=== PATIENT | male | born 1945 | race Caucasian/White ===

== ENCOUNTER 2017-01-24 10:59 | Emergency (ER) | payer MEDICARE, BC ==
--- NOTE | 2017-01-24 11:47 | EDM.PDOC ---
ED HPI GENERAL MEDICAL PROBLEM - General Chief Complaint: Lower Extremity Injury/Pain Stated Complaint: FOOT PAIN Time Seen by Provider: 01/24/17 11:15 Source of Information: Reports: Patient - History of Present Illness INITIAL COMMENTS - FREE TEXT/NARRATIVE: 71 y.o.w.m with IDDM came to the ed with left food discomfort. Ot was seen a few weeks ago by his podietrist when a " blister" at his r foot was removed. Onset: Unknown/Unsure Onset Date: 01/15/17 Duration: Day(s):, Getting Worse, Intermittent Location: Reports: Lower Extremity, Left Quality: Reports: Ache Severity: Mild Improves with: Reports: Rest Worsens with: Reports: Movement Context: Reports: Other (IDDM) Associated Symptoms: Reports: No Other Symptoms Bilateral Feet Pain Score (Numeric/FACES): 6 Generalized Pain Score (Numeric/FACES): 5 - Related Data Allergies Allergy/AdvReac Type Severity Reaction Status Date / Time No Known Allergies Allergy Verified 01/24/17 11:13 Home Meds: Home Meds Albuterol/Ipratropium [Combivent] 2 puff INH QID 05/11/13 [History] Aspirin 325 mg PO DAILY 05/11/13 [History] Furosemide [Lasix] 40 mg PO DAILY 05/11/13 [History] Metoprolol Succinate 25 mg PO DAILY 05/11/13 [History] metFORMIN [Glucophage] 500 mg PO BID 05/11/13 [History] LORazepam [Ativan] 1 - 2 tab PO TID PRN 05/13/13 [History] Nitroglycerin [Nitrostat] 0.4 mg SL ASDIRECTED PRN 05/13/13 [History] oxyCODONE HCl/Acetaminophen [Oxycodone-Acetaminophen 10-650] 1 tab PO Q6HR PRN 05/13/13 [History] Amoxicillin/Potassium Clav [Augmentin 875-125 Tablet] 1 each PO BID #20 tablet 01/24/17 [Rx] FLUoxetine [PROzac] 20 mg PO DAILY 01/24/17 [History] Insulin NPH Hum/Reg Insulin Hm [Novolin 70-30 100 Unit/ml Vial] 100 unit SQ TID 01/24/17 [History] atorvaSTATin [Lipitor] 40 mg PO BEDTIME 01/24/17 [History] Past Medical History - Past Health History Medical/Surgical History: Denies Medical/Surgical History Cardiovascular History: Reports: Bypass, High Cholesterol, Hypertension, SOB on Exertion, Stents Respiratory History: Reports: COPD, Pneumonia, Recurrent, Pulmonary Fibrosis, SOB Genitourinary History: Reports: BPH Neurological History: Reports: Neuropathy, Diabetic, Neuropathy, Peripheral, Other (See Below) Other Neuro History: restless leg Psychiatric History: Reports: Anxiety Endocrine/Metabolic History: Reports: Diabetes, Type II Dermatologic History: Reports: Psoriasis - Past Surgical History Cardiovascular Surgical History: Reports: Coronary Artery Bypass GI Surgical History: Reports: Appendectomy, Cholecystectomy Social & Family History - Tobacco Use Smoking Status *Q: Former Smoker Years of Tobacco use: 40 Used Tobacco, but Quit: Yes Month Tobacco Last Used: quit in 1995 Second Hand Smoke Exposure: No - Caffeine Use Caffeine Use: Reports: Coffee - Recreational Drug Use Recreational Drug Use: No - Living Situation & Occupation Living situation: Reports: Other Review of Systems - Review of Systems Review Of Systems: See Below Constitutional: Reports: No Symptoms Eyes: Reports: No Symptoms Ears: Reports: No Symptoms Nose: Reports: No Symptoms Mouth/Throat: Reports: No Symptoms Respiratory: Reports: No Symptoms Cardiovascular: Reports: No Symptoms GI/Abdominal: Reports: No Symptoms Genitourinary: Reports: No Symptoms Musculoskeletal: Reports: Muscle Pain Skin: Reports: Wound (both feet, plantar aspect) Neurological: Reports: Difficulty Walking (PVD) Psychiatric: Reports: No Symptoms ED EXAM, GENERAL - Physical Exam Exam: See Below Exam Limited By: No Limitations General Appearance: Alert, WD/WN, Mild Distress Eye Exam: Bilateral Eye: Normal Inspection Ears: Normal External Exam Ear Exam: Bilateral Ear: Auricle Normal Nose: Normal Inspection, Normal Mucosa Throat/Mouth: Normal Inspection, Normal Lips Head: Atraumatic, Normocephalic Neck: Normal Inspection, Supple Respiratory/Chest: No Respiratory Distress, Lungs Clear Cardiovascular: Normal Peripheral Pulses, Regular Rate, Rhythm, No Edema Peripheral Pulses: 1+: Popliteal (L), Popliteal (R) GI/Abdominal: Normal Bowel Sounds, Soft (Male) Exam: Deferred Rectal (Males) Exam: Deferred Back Exam: Normal Inspection Extremities: Normal Range of Motion, Slow Capillary Refill, Pallor, Other (dry gangrene left latral foot plantar aspect 1"x1" with celluilits streak torward the heal) Neurological: Alert, Oriented, CN II-XII Intact, Other (PVD due to IDDM) Psychiatric: Normal Affect, Normal Mood Skin Exam: Warm, Dry, Rash (cellulitis left foot plantar aspect with dry gangrene left lat foot 1" time 1 ") Lymphatic: No Adenopathy Course - Vital Signs Last Recorded V/S: Last Vital Signs Temp 37.2 C 01/24/17 11:15 Pulse 73 01/24/17 12:55 Resp 18 01/24/17 11:15 BP 140/73 01/24/17 12:55 Pulse Ox 95 01/24/17 11:15 - Orders/Labs/Meds Orders: Active Orders 24 hr Category Date Time Status Foot Comp Min 3V Lt [CR] Stat Exams 01/24/17 11:29 Taken CULTURE BLOOD [BC] Urgent Lab 01/24/17 11:31 Received CULTURE BLOOD [BC] Urgent Lab 01/24/17 11:40 Received Blood Culture x2 Reflex Set [OM.PC] Urgent Oth 01/24/17 11:31 Ordered Labs: Laboratory Tests 01/24/17 01/24/17 01/24/17 Range/Units 11:35 11:35 11:35 WBC 7.5 (4.5-12.0) X10-3/uL RBC 3.88 L (4.30-5.75) x10(6)uL Hgb 11.1 L (11.5-15.5) g/dL Hct 32.8 (30.0-51.3) % MCV 84.5 (80-96) fL MCH 28.6 (27.7-33.6) pg MCHC 33.8 (32.2-35.4) g/dL RDW 13.3 (11.5-15.5) % Plt Count 207 (125-369) X10(3)uL MPV 8.7 (7.4-10.4) fL Neut % (Auto) 76.0 (46-82) % Lymph % (Auto) 12.7 L (13-37) % [place] % (Auto) 9.7 (4-12) % Eos % (Auto) 1 (1.0-5.0) % Baso % (Auto) 0 (0-2) % Neut # (Auto) 5.8 (1.6-8.3) # Lymph # (Auto) 0.9 (0.6-5.0) # [place] # (Auto) 0.7 (0.0-1.3) # Eos # (Auto) 0.1 (0.0-0.8) # Baso # (Auto) 0.0 (0.0-0.2) # Sodium 135 (135-145) mmol/L Potassium 5.3 (3.5-5.3) mmol/L Chloride 98 L (100-110) mmol/L Carbon Dioxide 29 (23-29) mmol/L BUN 18 (8-23) mg/dL Creatinine 0.9 (0.6-1.3) mg/dL Est Cr Clr Drug Dosing 78.86 mL/min Estimated GFR (MDRD) > 60 (>60) BUN/Creatinine Ratio 20.0 (9-20) Glucose 163 H (80-116) mg/dL Hemoglobin A1c 7.5 H (4.0-6.0) % Calcium 9.1 (8.6-10.2) mg/dL Meds: Medications Discontinued Medications Generic Name Dose Route Start Last Admin Trade Name Freq PRN Reason Stop Dose Admin Ceftriaxone Sodium 1,000 mg 01/24/17 12:37 01/24/17 12:44 Rocephin IM 01/24/17 12:38 1,000 mg ONETIME ONE Administration Departure - Departure Time of Disposition: 12:42 Disposition: Home, Self-Care 01 Condition: Good Clinical Impression: Dry gangrene, Cellulitis of foot, left Diabetes mellitus Qualifiers: Diabetes mellitus type: type 2 Diabetes mellitus complication status: with circulatory complication - Discharge Information Prescriptions: Amoxicillin/Potassium Clav [Augmentin 875-125 Tablet] 1 each PO BID #20 tablet Referrals: PCP,None [Primary Care Provider] - Driss Polanco MD [Physician] - Forms: ED Department Discharge Additional Instructions: Please soak your left foot in Hipiclens daily. Please follow yo with Dr. Polanco , Surgeon, this Friday. Please take the Abx as recommended, please came back if your symptoms get worse acutely. - My Orders Last 24 Hours: My Active Orders 01/24/17 11:29 Foot Comp Min 3V Lt [CR] Stat 01/24/17 11:31 CULTURE BLOOD [BC] Urgent Blood Culture x2 Reflex Set [OM.PC] Urgent 01/24/17 11:40 CULTURE BLOOD [BC] Urgent - Assessment/Plan Last 24 Hours: My Active Orders 01/24/17 11:29 Foot Comp Min 3V Lt [CR] Stat 01/24/17 11:31 CULTURE BLOOD [BC] Urgent Blood Culture x2 Reflex Set [OM.PC] Urgent 01/24/17 11:40 CULTURE BLOOD [BC] Urgent
[2017-01-24] MEDS ORDERED: cefTRIAXone 1,000 MG VIAL IM ONE (12:37)
[2017-01-24 13:04] VITALS: BP 140/73
--- NOTE | 2017-01-24 14:44 | CR ---
INDICATION: Left foot infection, question osteomyelitis. LEFT FOOT: Three views of the left foot revealed an area of significant soft tissue swelling and apparent excavation, compatible with a large subcutaneous ulcer, which appears to extend to the cortex of the distal metaphysis of the 5th metatarsal. However, no periosteal new bone formation or significant localized porotic changes could be identified to strongly suggest osteomyelitis. Findings should be correlated clinically. Follow-up studies may be warranted, depending upon clinical course. Three phase nuclear bone imaging may be helpful , if occult osteomyelitis is suspected clinically. Minimal posterior and plantar calcaneal spurs are noted. Mild degenerative changes are noted at the first metatarsophalangeal joint. Minimal degenerative change is suggested at the interphalangeal joint of the great toe and DIPJs of the toes in general. IMPRESSION: 1. Soft tissue ulcer along the lateral aspect of the foot at the distal metaphysis of the 5th metatarsal. No definite finding compatible with osteomyelitis identified - correlate clinically. 2. Osteoarthritis. Report was given by phone to Dr. Smith soon after the examination was completed on 01/24/2017. MINA
== END 2017-01-24 12:55 | disposition home or self-care (01) ==
LOC: FB.ED 10:59
DX: E11.52 Type 2 diabetes mellitus with diabetic peripheral angiopathy with gangrene (principal); L03.116 Cellulitis of left lower limb; E11.42 Type 2 diabetes mellitus with diabetic polyneuropathy; J44.9 Chronic obstructive pulmonary disease, unspecified; I10 Essential (primary) hypertension; E78.00 Pure hypercholesterolemia, unspecified; F41.9 Anxiety disorder, unspecified; Z79.82 Long term (current) use of aspirin; Z79.4 Long term (current) use of insulin; Z79.899 Other long term (current) drug therapy; Z87.01 Personal history of pneumonia (recurrent); Z87.891 Personal history of nicotine dependence; Z90.49 Acquired absence of other specified parts of digestive tract; Z95.1 Presence of aortocoronary bypass graft
CPT/HCPCS: 36415; 73630; 80048; 83036; 85025; 87040; 96372; 99284; J0696

== ENCOUNTER 2017-08-01 16:38 | Emergency (ER) | payer MEDICARE, BC ==
[2017-08-01] MEDS ORDERED: cefTRIAXone 1,000 MG VIAL IM ONE (16:48)
--- NOTE | 2017-08-01 18:07 | EDM.PDOC ---
ED HPI GENERAL MEDICAL PROBLEM - General Stated Complaint: TORE END OF TOE OFF ON LT FOOT Time Seen by Provider: 08/01/17 16:38 Source of Information: Reports: Patient History Limitations: Reports: Physical Impairment - History of Present Illness INITIAL COMMENTS - FREE TEXT/NARRATIVE: 71 y.o.w.m with a h/o IDDM, came to the ed after he noticed a bleed at his left big toe. He does not remember a trauma. He no sensitivity in his distal lower extremity for some time due to the SE of his DM. Pt applied a bandage to his left big toe FIBREGLASS LAMINATOR. Pt denied any other acute medical issues. BP 113/45 pulse 78 Temp 36.8 Pulse ox 99% RR 18 Accu check: Please see nursing note Onset Date: 08/01/17 Onset Time: 12:10 Duration: Hour(s):, Intermittent Location: Reports: Lower Extremity, Left (left big toe bleed/abrasion) Quality: Reports: Other (no pain) Severity: Mild Improves with: Reports: None Worsens with: Reports: None Context: Reports: Other (pt does not remmember a trauma) Associated Symptoms: Reports: No Other Symptoms - Related Data Allergies Allergy/AdvReac Type Severity Reaction Status Date / Time No Known Allergies Allergy Verified 01/24/17 11:13 Home Meds: Home Meds Albuterol/Ipratropium [Combivent] 2 puff INH QID 05/11/13 [History] Aspirin 325 mg PO DAILY 05/11/13 [History] Furosemide [Lasix] 40 mg PO DAILY 05/11/13 [History] Metoprolol Succinate 25 mg PO DAILY 05/11/13 [History] metFORMIN [Glucophage] 500 mg PO BID 05/11/13 [History] LORazepam [Ativan] 1 - 2 tab PO TID PRN 05/13/13 [History] Nitroglycerin [Nitrostat] 0.4 mg SL ASDIRECTED PRN 05/13/13 [History] oxyCODONE HCl/Acetaminophen [Oxycodone-Acetaminophen 10-650] 1 tab PO Q6HR PRN 05/13/13 [History] Amoxicillin/Potassium Clav [Augmentin 875-125 Tablet] 1 each PO BID #20 tablet 01/24/17 [Rx] FLUoxetine [PROzac] 20 mg PO DAILY 01/24/17 [History] Insulin NPH Hum/Reg Insulin Hm [Novolin 70-30 100 Unit/ml Vial] 100 unit SQ TID 01/24/17 [History] atorvaSTATin [Lipitor] 40 mg PO BEDTIME 01/24/17 [History] Cephalexin [Keflex] 500 mg PO Q6H #40 cap 08/01/17 [Rx] Past Medical History - Past Health History Medical/Surgical History: Denies Medical/Surgical History Cardiovascular History: Reports: Bypass, High Cholesterol, Hypertension, SOB on Exertion, Stents Respiratory History: Reports: COPD, Pneumonia, Recurrent, Pulmonary Fibrosis, SOB Genitourinary History: Reports: BPH Neurological History: Reports: Neuropathy, Diabetic, Neuropathy, Peripheral, Other (See Below) Other Neuro History: restless leg Psychiatric History: Reports: Anxiety Endocrine/Metabolic History: Reports: Diabetes, Type II Dermatologic History: Reports: Psoriasis - Past Surgical History Cardiovascular Surgical History: Reports: Coronary Artery Bypass GI Surgical History: Reports: Appendectomy, Cholecystectomy Social & Family History - Tobacco Use Smoking Status *Q: Former Smoker Years of Tobacco use: 40 Used Tobacco, but Quit: Yes Month/Year Tobacco Last Used: quit in 1995 Second Hand Smoke Exposure: No - Caffeine Use Caffeine Use: Reports: Coffee - Recreational Drug Use Recreational Drug Use: No - Living Situation & Occupation Living situation: Reports: Other Review of Systems - Review of Systems Review Of Systems: See Below Constitutional: Reports: No Symptoms Eyes: Reports: No Symptoms Ears: Reports: No Symptoms Nose: Reports: No Symptoms Mouth/Throat: Reports: No Symptoms Respiratory: Reports: No Symptoms Cardiovascular: Reports: No Symptoms GI/Abdominal: Reports: No Symptoms Genitourinary: Reports: No Symptoms Musculoskeletal: Reports: No Symptoms Skin: Reports: Wound (left big toe abrasion) Neurological: Reports: Other (PVD due to DM) Psychiatric: Reports: No Symptoms ED EXAM, GENERAL - Physical Exam Exam: See Below Exam Limited By: No Limitations General Appearance: Alert, WD/WN, Mild Distress Eye Exam: Bilateral Eye: Normal Inspection Ears: Normal External Exam Ear Exam: Bilateral Ear: Auricle Normal Nose: Normal Inspection, Normal Mucosa Throat/Mouth: Normal Inspection, Normal Lips Head: Atraumatic, Normocephalic Neck: Normal Inspection, Supple, Non-Tender Respiratory/Chest: No Respiratory Distress, Lungs Clear Cardiovascular: Normal Peripheral Pulses Peripheral Pulses: 2+: Brachial (L) GI/Abdominal: Normal Bowel Sounds (Male) Exam: Deferred Rectal (Males) Exam: Deferred Back Exam: Normal Inspection, Full Range of Motion Extremities: Normal Range of Motion, Non-Tender, No Pedal Edema, Pallor, Other ( abrastion left lat toe, no active bleed) Neurological: Alert, Oriented, CN II-XII Intact, Normal Cognition, Normal Gait, Sensory/Motor Deficit (lower extemities) Psychiatric: Normal Affect, Normal Mood Skin Exam: Warm, Dry, Intact, No Rash, Pallor Lymphatic: No Adenopathy Course - Vital Signs Text/Narrative:: 71 y.o.w.m with a h/o IDDM, came to the ed after he noticed a bleed at his left big toe. He does not remember a trauma. He no sensitivity in his distal lower extremity for some time due to the SE of his DM. Pt applied a bandage to his left big toe FIBREGLASS LAMINATOR. Pt denied any other acute medical issues. BP 113/45 pulse 78 Temp 36.8 Pulse ox 99% RR 18 Accu check: Please see nursing note PE: WNWD 71 y.o.w.m with an abrasion left big toe, no active bleed. Imaging: Left toe, NAD, official report is pending Impression: IDDM with Peripheral Vascular disease. Abrasion left big toe. Tx: Neosprine ointment, tube gaze and Abx Reexam: Improved, pt was able to ambulate on D/C Plan: D/C with instructions Last Recorded V/S: Last Vital Signs Temp 36.8 C 08/01/17 18:00 Pulse 89 08/01/17 18:00 Resp 18 08/01/17 18:00 BP 113/45 L 08/01/17 18:00 Pulse Ox 99 08/01/17 18:00 - Orders/Labs/Meds Orders: Active Orders 24 hr Category Date Time Status Toes Great Toe Lt TA [CR] Stat Exams 08/01/17 16:55 Taken Meds: Medications Discontinued Medications Generic Name Dose Route Start Last Admin Trade Name Freq PRN Reason Stop Dose Admin Ceftriaxone Sodium 1,000 mg 08/01/17 16:48 08/01/17 18:17 Rocephin IM 08/01/17 16:49 1,000 mg ONETIME ONE Administration Departure - Departure Time of Disposition: 18:01 Disposition: Home, Self-Care 01 Condition: Good Clinical Impression: Peripheral vascular disease due to secondary diabetes, Toe abrasion, non- infected - Discharge Information Prescriptions: Cephalexin [Keflex] 500 mg PO Q6H #40 cap Instructions: Ceftriaxone injection, Peripheral Vascular Disease, [id number] , Cephalexin tablets or capsules Referrals: Eros Albert MD [Primary Care Provider] - Forms: ED Department Discharge Additional Instructions: please keep poonam toes dry and clean, please take the Abx as recommended, wound check in this Friday. Please come back to the ed if your symptoms get worse acutely - My Orders Last 24 Hours: My Active Orders 08/01/17 16:55 Toes Great Toe Lt TA [CR] Stat - Assessment/Plan Last 24 Hours: My Active Orders 08/01/17 16:55 Toes Great Toe Lt TA [CR] Stat
[2017-08-01 19:40] VITALS: BP 113/45
--- NOTE | 2017-08-04 13:50 | CR ---
INDICATION: Toe bleeding. LEFT GREAT TOE: Three views of the left great toe were obtained 08/01/2017 and compared with 01/24/2017, revealing mild degenerative changes at the first metatarsophalangeal joint and interphalangeal joint of the great toe with subchondral cystic changes at the latter joint. A definite fracture or dislocation was not identified. Overlying artifactual density is noted due to apparent socks. Arterial calcifications are noted in pedal arteries. IMPRESSION: 1. Mild osteoarthritis. 2. ASD. MTDD
== END 2017-08-01 18:20 | disposition home or self-care (01) ==
LOC: FB.ED 16:38
DX: E11.51 Type 2 diabetes mellitus with diabetic peripheral angiopathy without gangrene (principal); S90.412A Abrasion, left great toe, initial encounter; E11.42 Type 2 diabetes mellitus with diabetic polyneuropathy; I10 Essential (primary) hypertension; J44.9 Chronic obstructive pulmonary disease, unspecified; Z87.891 Personal history of nicotine dependence; Z79.82 Long term (current) use of aspirin; Z79.899 Other long term (current) drug therapy; Z79.4 Long term (current) use of insulin; X58.XXXA Exposure to other specified factors, initial encounter
CPT/HCPCS: 73660; 96372; 99283; J0696

== ENCOUNTER 2017-08-04 14:39 | Inpatient (IN) | payer MEDICARE, BC ==
[2017-08-04] MEDS ORDERED: Nitroglycerin 0.4 MG Tab.SL SL PRN (16:34)
[2017-08-04] MEDS ORDERED: Non-Formulary Medication 1 Each (Albuterol/Ipratropium [Combivent] 2 PUFF) INH PRN (16:34)
[2017-08-04] MEDS ORDERED: Albuterol/Ipratropium 3.0-0.5 MG/3 ML Neb Soln INH PRN (16:45)
[2017-08-04] MEDS ORDERED: LORazepam 1 MG Tab PO PRN (17:00)
[2017-08-04] MEDS: Ertapenem 1 GM in Sodium Chloride 0.9% 50 ML IV SCH (17:11)
[2017-08-04] MEDS: Sodium Chloride 0.9% 1,000 ML IV SCH (17:11)
[2017-08-04] MEDS ORDERED: metFORMIN 500 MG Tab PO SCH ×2 (18:00→18:30)
[2017-08-04] MEDS: Insuln Aspart Prot/Insulin Aspart 100 Units/ML 3 ML FlexPen SUBCUT SCH (18:03)
[2017-08-04] MEDS: HYDROmorphone 2 MG/ML SDV IVPUSH PRN (18:54)
[2017-08-04] MEDS: atorvaSTATin 40 MG Tab PO SCH (21:17)
[2017-08-04] MEDS: Gabapentin 300 MG Cap PO SCH (21:17)
[2017-08-05] MEDS: Sodium Chloride 0.9% 1,000 ML IV SCH (02:02)
[2017-08-05] MEDS: HYDROmorphone 2 MG/ML SDV IVPUSH PRN ×3 (04:17→16:42)
--- NOTE | 2017-08-05 07:36 | PCM.SURGPN ---
- General Info Date of Service: 08/05/17 Functional Status: Reports: Pain Controlled - Review of Systems General: Reports: No Symptoms Pulmonary: Reports: No Symptoms Cardiovascular: Reports: No Symptoms Gastrointestinal: Reports: No Symptoms Musculoskeletal: Reports: No Symptoms - Patient Data Vitals - Most Recent: Last Vital Signs Temp 36.7 C 08/05/17 01:30 Pulse 68 08/05/17 04:30 Resp 18 08/05/17 04:30 BP 152/84 H 08/05/17 04:30 Pulse Ox 96 08/05/17 04:30 Weight - Most Recent: 90.356 kg I&O - Last 24 Hours: Intake & Output 08/04/17 08/05/17 08/05/17 22:59 06:59 14:59 Intake Total 487 1104 Balance 487 1104 Lab Results Last 24 Hrs: Laboratory Results - last 24 hr 08/04/17 08/04/17 08/04/17 Range/Units 16:45 16:45 21:21 WBC 8.3 (4.5-12.0) X10-3/uL RBC 3.75 L (4.30-5.75) x10(6)uL Hgb 10.7 L (11.5-15.5) g/dL Hct 31.4 (30.0-51.3) % MCV 83.7 (80-96) fL MCH 28.5 (27.7-33.6) pg MCHC 34.1 (32.2-35.4) g/dL RDW 14.6 (11.5-15.5) % Plt Count 278 (125-369) X10(3)uL MPV 8.3 (7.4-10.4) fL Neut % (Auto) 78.5 (46-82) % Lymph % (Auto) 10.5 L (13-37) % [place] % (Auto) 7.7 (4-12) % Eos % (Auto) 3 (1.0-5.0) % Baso % (Auto) 0 (0-2) % Neut # (Auto) 6.5 (1.6-8.3) # Lymph # (Auto) 0.9 (0.6-5.0) # [place] # (Auto) 0.6 (0.0-1.3) # Eos # (Auto) 0.3 (0.0-0.8) # Baso # (Auto) 0.0 (0.0-0.2) # Sodium 135 (135-145) mmol/L Potassium 5.1 (3.5-5.3) mmol/L Chloride 97 L (100-110) mmol/L Carbon Dioxide 32 (21-32) mmol/L BUN 23 H (7-18) mg/dL Creatinine 1.1 (0.70-1.30) mg/dL Est Cr Clr Drug Dosing 64.52 mL/min Estimated GFR (MDRD) > 60 (>60) BUN/Creatinine Ratio 20.9 H (9-20) Glucose 271 H (80-116) mg/dL POC Glucose 188 H (80-116) mg/dL Calcium 8.6 (8.6-10.2) mg/dL 08/05/17 Range/Units 06:34 WBC (4.5-12.0) X10-3/uL RBC (4.30-5.75) x10(6)uL Hgb (11.5-15.5) g/dL Hct (30.0-51.3) % MCV (80-96) fL MCH (27.7-33.6) pg MCHC (32.2-35.4) g/dL RDW (11.5-15.5) % Plt Count (125-369) X10(3)uL MPV (7.4-10.4) fL Neut % (Auto) (46-82) % Lymph % (Auto) (13-37) % [place] % (Auto) (4-12) % Eos % (Auto) (1.0-5.0) % Baso % (Auto) (0-2) % Neut # (Auto) (1.6-8.3) # Lymph # (Auto) (0.6-5.0) # [place] # (Auto) (0.0-1.3) # Eos # (Auto) (0.0-0.8) # Baso # (Auto) (0.0-0.2) # Sodium (135-145) mmol/L Potassium (3.5-5.3) mmol/L Chloride (100-110) mmol/L Carbon Dioxide (21-32) mmol/L BUN (7-18) mg/dL Creatinine (0.70-1.30) mg/dL Est Cr Clr Drug Dosing mL/min Estimated GFR (MDRD) (>60) BUN/Creatinine Ratio (9-20) Glucose (80-116) mg/dL POC Glucose 113 (80-116) mg/dL Calcium (8.6-10.2) mg/dL Med Orders - Current: Current Medications Albuterol/Ipratropium (Duoneb 3.0-0.5 Mg/3 Ml) 3 ml INH QID PRN PRN Reason: SHORTNESS OF BREATH Atorvastatin Calcium (Lipitor) 40 mg PO BEDTIME [facility] Last Admin: 08/04/17 21:17 Dose: 40 mg Fluoxetine HCl (Prozac) 20 mg PO DAILY [facility] Gabapentin (Neurontin) 300 mg PO TID [facility] Last Admin: 08/04/17 21:17 Dose: 300 mg Hydromorphone HCl (Dilaudid) 1 mg IVPUSH Q4H PRN PRN Reason: Pain Last Admin: 08/05/17 04:17 Dose: 1 mg Ertapenem 1 gm/ Sodium (Chloride) 50 mls @ 100 mls/hr IV Q24H [facility] Last Admin: 08/04/17 17:11 Dose: 100 mls/hr Insulin Aspart (Novolog Mix 70-30) 15 unit SUBCUT BIDMEALS [facility] Last Admin: 08/04/17 18:03 Dose: 15 units Lorazepam (Ativan) 1 mg PO TID PRN PRN Reason: ANXIETY Metformin HCl (Glucophage) 1,000 mg PO BIDMEALS [facility] Last Admin: 08/04/17 18:56 Dose: 500 mg Metoprolol Succinate (Toprol Xl) 25 mg PO DAILY [facility] Nitroglycerin (Nitrostat) 0.4 mg SL ASDIRECTED PRN PRN Reason: Chest Pain Sodium Chloride (Saline Flush) 10 ml FLUSH ASDIRECTED PRN PRN Reason: Keep Vein Open Discontinued Medications Sodium Chloride (Normal Saline) 1,000 mls @ 125 mls/hr IV ASDIRECTED [facility] Last Admin: 08/05/17 02:02 Dose: 125 mls/hr Metformin HCl (Glucophage) 500 mg PO BIDMEALS [facility] Last Admin: 08/04/17 18:06 Dose: 500 mg - Exam Wound/Incisions: Erythema Improving General: Alert, Oriented Skin: Warm, Dry, Intact - Problem List & Annotations (1) Cellulitis of foot, left SNOMED Code(s): 021911292 Code(s): L03.116 - CELLULITIS OF LEFT LOWER LIMB Status: Acute Current Visit: No (2) Diabetes mellitus SNOMED Code(s): 61531081 Code(s): E11.9 - TYPE 2 DIABETES MELLITUS WITHOUT COMPLICATIONS Status: Acute Current Visit: No Qualifiers: Diabetes mellitus type: type 2 Diabetes mellitus buttermaker insulin use: unspecified buttermaker insulin use status Diabetes mellitus complication detail : with foot ulcer (3) Foot ulcer due to secondary DM SNOMED Code(s): 8782362 Code(s): E13.621 - OTHER SPECIFIED DIABETES MELLITUS WITH FOOT ULCER; L97.509 - NON-PRESSURE CHRONIC ULCER OTH PRT UNSP FOOT W UNSP SEVERITY Status : Acute Current Visit: No - Problem List Review Problem List Initiated/Reviewed/Updated: Yes - My Orders Last 24 Hours: Active Orders 24 hr Category Date Time Status Patient Status [ADT] Routine ADT 08/04/17 16:27 Active Blood Glucose Check, Bedside [RC] 07,11,17,21 Care 08/04/17 16:27 Active Communication Order [RC] ROUTINE Care 08/04/17 16:39 Active Notify Provider Vital Signs [RC] ASDIRECTED Care 08/04/17 16:29 Active Oxygen Therapy [RC] PRN Care 08/04/17 16:27 Active Verify Patient Consent Obtain [RC] ASDIRECTED Care 08/04/17 16:39 Active Vital Signs [RC] 00,04,08,12,16,20 Care 08/04/17 16:27 Active Consistent Carbohydrate Diet [DIET] Diet 08/05/17 Lunch Ordered Foot Comp Min 3V Lt [CR] Routine Exams 08/04/17 16:40 Taken Albuterol/Ipratropium [DuoNeb 3.0-0.5 MG/3 ML] Med 08/04/17 16:45 Active 3 ml INH QID PRN Ertapenem [INVanz] 1 gm Med 08/04/17 17:00 Active Sodium Chloride 0.9% [Normal Saline] 50 ml IV Q24H FLUoxetine [PROzac] Med 08/05/17 09:00 Active 20 mg PO DAILY Gabapentin [Neurontin] Med 08/04/17 21:00 Active 300 mg PO TID HYDROmorphone [Dilaudid] Med 08/04/17 18:22 Active 1 mg IVPUSH Q4H PRN Insuln Asp Prot/Insulin Aspart [NovoLOG Mix 70-30] Med 08/04/17 18:00 Hold 15 unit SUBCUT BIDMEALS LORazepam [Ativan] Med 08/04/17 17:00 Active 1 mg PO TID PRN Metoprolol Succinate [Toprol XL] Med 08/05/17 09:00 Active 25 mg PO DAILY Nitroglycerin [Nitrostat] Med 08/04/17 16:34 Active 0.4 mg SL ASDIRECTED PRN Sodium Chloride 0.9% [Saline Flush] Med 08/04/17 15:54 Active 10 ml FLUSH ASDIRECTED PRN atorvaSTATin [Lipitor] Med 08/04/17 21:00 Active 40 mg PO BEDTIME metFORMIN [Glucophage] Med 08/04/17 18:30 Active 1,000 mg PO BIDMEALS Anticoagulation Contraindications VTE [AST] Per Unit Oth 08/04/17 16:27 Ordered Routine Convert IV to Saline Lock [OM.PC] Routine Oth 08/05/17 07:33 Ordered Peripheral IV Insertion Adult [OM.PC] Routine Oth 08/04/17 15:54 Ordered Sequential Compression Device [OM.PC] Per Unit Routine Oth 08/04/17 16:29 Ordered Resuscitation Status Routine Resus Stat 08/04/17 16:27 Ordered Medication Orders Albuterol/Ipratropium (Duoneb 3.0-0.5 Mg/3 Ml) 3 ml INH QID PRN PRN Reason: SHORTNESS OF BREATH Atorvastatin Calcium (Lipitor) 40 mg PO BEDTIME [facility] Last Admin: 08/04/17 21:17 Dose: 40 mg Fluoxetine HCl (Prozac) 20 mg PO DAILY [facility] Gabapentin (Neurontin) 300 mg PO TID [facility] Last Admin: 08/04/17 21:17 Dose: 300 mg Hydromorphone HCl (Dilaudid) 1 mg IVPUSH Q4H PRN PRN Reason: Pain Last Admin: 08/05/17 04:17 Dose: 1 mg Admin: 08/04/17 18:54 Dose: 1 mg Ertapenem 1 gm/ Sodium (Chloride) 50 mls @ 100 mls/hr IV Q24H [facility] Last Admin: 08/04/17 17:11 Dose: 100 mls/hr Insulin Aspart (Novolog Mix 70-30) 15 unit SUBCUT BIDMEALS [facility] Last Admin: 08/04/17 18:03 Dose: 15 units Lorazepam (Ativan) 1 mg PO TID PRN PRN Reason: ANXIETY Metformin HCl (Glucophage) 1,000 mg PO BIDMEALS [facility] Last Admin: 08/04/17 18:56 Dose: 500 mg Metoprolol Succinate (Toprol Xl) 25 mg PO DAILY [facility] Nitroglycerin (Nitrostat) 0.4 mg SL ASDIRECTED PRN PRN Reason: Chest Pain Sodium Chloride (Saline Flush) 10 ml FLUSH ASDIRECTED PRN PRN Reason: Keep Vein Open - Assessment Assessment (Free Text/Narrative):: improving on antibiotics. - Plan Plan (Free Text/Narrative):: will hold off on amputation for now. may be able to get a demarcation to prevent losing entire toe.
[2017-08-05] MEDS: metFORMIN 1,000 MG Tab PO SCH ×2 (08:39→17:29)
[2017-08-05] MEDS: Insuln Aspart Prot/Insulin Aspart 100 Units/ML 3 ML FlexPen SUBCUT SCH ×2 (08:39→17:30)
[2017-08-05] MEDS: Gabapentin 300 MG Cap PO SCH ×3 (08:41→20:15)
[2017-08-05] MEDS: Enoxaparin 40 MG/0.4 ML Syringe SUBCUT SCH (08:41)
[2017-08-05] MEDS: FLUoxetine 20 MG Cap PO SCH (08:41)
[2017-08-05] MEDS: Metoprolol Succinate 25 MG Tab.ER PO SCH (08:42)
[2017-08-05] MEDS: Sodium Chloride 0.9% 10 ML Syringe FLUSH PRN (10:28)
--- NOTE | 2017-08-05 15:29 | CR ---
INDICATION: Question osteomyelitis left great toe. LEFT FOOT: Three views of the left foot revealed evidence of amputation of the mid shaft through the 5th toe area. Mild degenerative changes are noted at the first metatarsophalangeal joint. There may be some soft tissue swelling at the great toe. Arterial calcifications are noted - pedal artery calcifications. A very tiny plantar calcaneal spur is noted. Mild degenerative changes are noted at the talonavicular joint. IMPRESSION: Mild osteoarthritis. ASD. 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 If osteomyelitis is suspected clinically, for which no roentgenographic evidence is seen at this time, 3-phase nuclear bone imaging may be helpful for further evaluation. MTDD
[2017-08-05] MEDS: Ertapenem 1 GM in Sodium Chloride 0.9% 50 ML IV SCH (17:23)
[2017-08-05] MEDS: atorvaSTATin 40 MG Tab PO SCH (20:15)
[2017-08-05] MEDS: Zolpidem 5 MG Tab PO PRN (20:16)
[2017-08-06] MEDS: HYDROmorphone 2 MG/ML SDV IVPUSH PRN ×2 (06:24→20:08)
[2017-08-06] MEDS: Sodium Chloride 0.9% 10 ML Syringe FLUSH PRN ×3 (06:25→20:09)
--- NOTE | 2017-08-06 07:47 | PCM.SURGPN ---
- General Info Date of Service: 08/06/17 Functional Status: Reports: Pain Controlled, Tolerating Diet, Ambulating, Urinating. Denies: New Symptoms - Review of Systems Musculoskeletal: Reports: Other (toe pain ) - Patient Data Vitals - Most Recent: Last Vital Signs Temp 36.6 C 08/06/17 07:39 Pulse 64 08/06/17 07:39 Resp 16 08/06/17 07:39 BP 157/83 H 08/06/17 07:39 Pulse Ox 95 08/06/17 07:39 Weight - Most Recent: 90.356 kg Lab Results Last 24 Hrs: Laboratory Results - last 24 hr 08/05/17 08/06/17 Range/Units 11:30 06:00 POC Glucose 150 H 128 H (80-116) mg/dL Med Orders - Current: Current Medications Albuterol/Ipratropium (Duoneb 3.0-0.5 Mg/3 Ml) 3 ml INH QID PRN PRN Reason: SHORTNESS OF BREATH Atorvastatin Calcium (Lipitor) 40 mg PO BEDTIME [facility] Last Admin: 08/05/17 20:15 Dose: 40 mg Enoxaparin Sodium (Lovenox) 40 mg SUBCUT DAILY [facility] Last Admin: 08/05/17 08:41 Dose: 40 mg Fluoxetine HCl (Prozac) 20 mg PO DAILY [facility] Last Admin: 08/05/17 08:41 Dose: 20 mg Gabapentin (Neurontin) 300 mg PO TID [facility] Last Admin: 08/05/17 20:15 Dose: 300 mg Hydromorphone HCl (Dilaudid) 1 mg IVPUSH Q4H PRN PRN Reason: Pain Last Admin: 08/06/17 06:24 Dose: 1 mg Ertapenem 1 gm/ Sodium (Chloride) 50 mls @ 100 mls/hr IV Q24H [facility] Last Admin: 08/05/17 17:23 Dose: 100 mls/hr Insulin Aspart (Novolog Mix 70-30) 15 unit SUBCUT BIDMEALS [facility] Last Admin: 08/05/17 17:30 Dose: 15 units Lorazepam (Ativan) 1 mg PO TID PRN PRN Reason: ANXIETY Metformin HCl (Glucophage) 1,000 mg PO BIDMEALS [facility] Last Admin: 08/05/17 17:29 Dose: 1,000 mg Metoprolol Succinate (Toprol Xl) 25 mg PO DAILY [facility] Last Admin: 08/05/17 08:42 Dose: 25 mg Nitroglycerin (Nitrostat) 0.4 mg SL ASDIRECTED PRN PRN Reason: Chest Pain Sodium Chloride (Saline Flush) 10 ml FLUSH ASDIRECTED PRN PRN Reason: Keep Vein Open Last Admin: 08/06/17 06:25 Dose: 10 ml Zolpidem Tartrate (Ambien) 5 mg PO BEDTIME PRN PRN Reason: Sleep Last Admin: 08/05/17 20:16 Dose: 5 mg Discontinued Medications Sodium Chloride (Normal Saline) 1,000 mls @ 125 mls/hr IV ASDIRECTED [facility] Last Admin: 08/05/17 02:02 Dose: 125 mls/hr Metformin HCl (Glucophage) 500 mg PO BIDMEALS [facility] Last Admin: 08/04/17 18:06 Dose: 500 mg Metformin HCl (Glucophage) 1,000 mg PO BIDMEALS [facility] Last Admin: 08/04/17 18:56 Dose: 500 mg - Exam Wound/Incisions: Erythema General: Alert, Cooperative, No Acute Distress Lungs: Clear to Auscultation, Normal Respiratory Effort Cardiovascular: Regular Rate, Regular Rhythm GI/Abdominal Exam: Normal Bowel Sounds, Soft Skin: Warm, Dry - Problem List & Annotations (1) Cellulitis of foot, left SNOMED Code(s): 590486282 Code(s): L03.116 - CELLULITIS OF LEFT LOWER LIMB Status: Acute Current Visit: No (2) Diabetes mellitus SNOMED Code(s): 46292704 Code(s): E11.9 - TYPE 2 DIABETES MELLITUS WITHOUT COMPLICATIONS Status: Acute Current Visit: No Qualifiers: Diabetes mellitus type: type 2 Diabetes mellitus half-way insulin use: unspecified 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 insulin use status Diabetes mellitus complication detail : with foot ulcer (3) Foot ulcer due to secondary DM SNOMED Code(s): 5354341 Code(s): E13.621 - OTHER SPECIFIED DIABETES MELLITUS WITH FOOT ULCER; L97.509 - NON-PRESSURE CHRONIC ULCER OTH PRT UNSP FOOT W UNSP SEVERITY Status : Acute Current Visit: No - Problem List Review Problem List Initiated/Reviewed/Updated: Yes - My Orders Last 24 Hours: Active Orders 24 hr Category Date Time Status Consistent Carbohydrate Diet [DIET] Diet 08/05/17 Lunch Active Acetaminophen/HYDROcodone [[place] 325-10 MG] Med 08/06/17 07:45 Ordered 1 tab PO Q6H PRN Enoxaparin [Lovenox] Med 08/05/17 09:00 Active 40 mg SUBCUT DAILY FLUoxetine [PROzac] Med 08/05/17 09:00 Active 20 mg PO DAILY Metoprolol Succinate [Toprol XL] Med 08/05/17 09:00 Active 25 mg PO DAILY Zolpidem [Ambien] Med 08/05/17 11:25 Active 5 mg PO BEDTIME PRN metFORMIN [Glucophage] Med 08/05/17 08:00 Active 1,000 mg PO BIDMEALS Convert IV to Saline Lock [OM.PC] Routine Oth 08/05/17 07:33 Ordered Medication Orders Albuterol/Ipratropium (Duoneb 3.0-0.5 Mg/3 Ml) 3 ml INH QID PRN PRN Reason: SHORTNESS OF BREATH Atorvastatin Calcium (Lipitor) 40 mg PO BEDTIME [facility] Last Admin: 08/05/17 20:15 Dose: 40 mg Admin: 08/04/17 21:17 Dose: 40 mg Enoxaparin Sodium (Lovenox) 40 mg SUBCUT DAILY [facility] Last Admin: 08/05/17 08:41 Dose: 40 mg Fluoxetine HCl (Prozac) 20 mg PO DAILY [facility] Last Admin: 08/05/17 08:41 Dose: 20 mg Gabapentin (Neurontin) 300 mg PO TID [facility] Last Admin: 08/05/17 20:15 Dose: 300 mg Admin: 08/05/17 13:47 Dose: 300 mg Admin: 08/05/17 08:41 Dose: 300 mg Admin: 08/04/17 21:17 Dose: 300 mg Hydromorphone HCl (Dilaudid) 1 mg IVPUSH Q4H PRN PRN Reason: Pain Last Admin: 08/06/17 06:24 Dose: 1 mg Admin: 08/05/17 16:42 Dose: 1 mg Admin: 08/05/17 10:26 Dose: 1 mg Admin: 08/05/17 04:17 Dose: 1 mg Admin: 08/04/17 18:54 Dose: 1 mg Ertapenem 1 gm/ Sodium (Chloride) 50 mls @ 100 mls/hr IV Q24H [facility] Last Admin: 08/05/17 17:23 Dose: 100 mls/hr Admin: 08/04/17 17:11 Dose: 100 mls/hr Insulin [facility] ([facility] 70-30) [facility] Admin: 08/05/17 17:30 Dose: 15 units Admin: 08/05/17 08:39 Dose: 15 units Admin: 08/04/17 18:03 Dose: 15 units Lorazepam (Ativan) 1 mg PO TID PRN PRN Reason: ANXIETY Metformin HCl (Glucophage) 1,000 mg PO BIDMEALS [facility] Last Admin: 08/05/17 17:29 Dose: 1,000 mg Admin: 08/05/17 08:39 Dose: 1,000 mg Metoprolol Succinate (Toprol Xl) 25 mg PO DAILY [facility] Last Admin: 08/05/17 08:42 Dose: 25 mg Nitroglycerin (Nitrostat) 0.4 mg SL ASDIRECTED PRN PRN Reason: Chest Pain Sodium Chloride (Saline Flush) 10 ml FLUSH ASDIRECTED PRN PRN Reason: Keep Vein Open Last Admin: 08/06/17 06:25 Dose: 10 ml Admin: 08/05/17 10:28 Dose: 10 ml Zolpidem Tartrate (Ambien) 5 mg PO BEDTIME PRN PRN Reason: Sleep Last Admin: 08/05/17 20:16 Dose: 5 mg - Assessment Assessment (Free Text/Narrative):: foot exam is stable tissue line is demarcating - Plan Plan (Free Text/Narrative):: continue current rx. will add a hydrocodone po pain pill
[2017-08-06] MEDS: metFORMIN 1,000 MG Tab PO SCH ×2 (07:58→17:44)
[2017-08-06] MEDS: Insuln Aspart Prot/Insulin Aspart 100 Units/ML 3 ML FlexPen SUBCUT SCH ×2 (07:59→17:42)
[2017-08-06] MEDS: Enoxaparin 40 MG/0.4 ML Syringe SUBCUT SCH (08:00)
[2017-08-06] MEDS: FLUoxetine 20 MG Cap PO SCH (08:01)
[2017-08-06] MEDS: Metoprolol Succinate 25 MG Tab.ER PO SCH (08:01)
[2017-08-06] MEDS: Gabapentin 300 MG Cap PO SCH ×3 (08:01→21:08)
[2017-08-06] MEDS: Acetaminophen/HYDROcodone 325-10 MG Tab PO PRN ×2 (09:18→16:37)
[2017-08-06] MEDS: Ertapenem 1 GM in Sodium Chloride 0.9% 50 ML IV SCH (16:51)
[2017-08-06] MEDS: atorvaSTATin 40 MG Tab PO SCH (21:08)
[2017-08-07] MEDS: Acetaminophen/HYDROcodone 325-10 MG Tab PO PRN ×2 (01:37→07:04)
[2017-08-07] MEDS: Metoprolol Succinate 25 MG Tab.ER PO SCH (08:54)
[2017-08-07] MEDS: metFORMIN 1,000 MG Tab PO SCH ×2 (08:54→18:54)
[2017-08-07] MEDS: Enoxaparin 40 MG/0.4 ML Syringe SUBCUT SCH (08:54)
[2017-08-07] MEDS: Gabapentin 300 MG Cap PO SCH ×3 (08:54→21:07)
[2017-08-07] MEDS: FLUoxetine 20 MG Cap PO SCH (08:54)
[2017-08-07] MEDS: Insuln Aspart Prot/Insulin Aspart 100 Units/ML 3 ML FlexPen SUBCUT SCH ×2 (08:55→18:54)
[2017-08-07] MEDS: HYDROmorphone 2 MG/ML SDV IVPUSH PRN ×2 (10:44→19:43)
[2017-08-07] MEDS: Sodium Chloride 0.9% 10 ML Syringe FLUSH PRN (10:44)
--- NOTE | 2017-08-07 11:21 | PCM.SURGPN ---
- General Info Date of Service: 08/07/17 Functional Status: Reports: Pain Controlled, Tolerating Diet - Review of Systems General: Reports: No Symptoms Pulmonary: Reports: No Symptoms Cardiovascular: Reports: No Symptoms Musculoskeletal: Reports: Leg Pain - Patient Data Vitals - Most Recent: Last Vital Signs Temp 36.7 C 08/07/17 07:10 Pulse 63 08/07/17 08:54 Resp 20 08/07/17 07:10 BP 156/86 H 08/07/17 08:54 Pulse Ox 94 L 08/07/17 07:10 Weight - Most Recent: 90.356 kg Lab Results Last 24 Hrs: Laboratory Results - last 24 hr 08/05/17 08/06/17 08/06/17 Range/Units 19:43 11:40 17:16 POC Glucose 195 H 123 H 147 H (80-116) mg/dL 08/06/17 08/07/17 Range/Units 21:04 07:07 POC Glucose 134 H 81 (80-116) mg/dL Med Orders - Current: Current Medications Hydrocodone Bitart/Acetaminophen ([place] 325-10 Mg) 1 tab PO Q6H PRN PRN Reason: Pain Last Admin: 08/07/17 07:04 Dose: 1 tab Albuterol/Ipratropium (Duoneb 3.0-0.5 Mg/3 Ml) 3 ml INH QID PRN PRN Reason: SHORTNESS OF BREATH Atorvastatin Calcium (Lipitor) 40 mg PO BEDTIME [facility] Last Admin: 08/06/17 21:08 Dose: 40 mg Enoxaparin Sodium (Lovenox) 40 mg SUBCUT DAILY [facility] Last Admin: 08/07/17 08:54 Dose: 40 mg Fluoxetine HCl (Prozac) 20 mg PO DAILY [facility] Last Admin: 08/07/17 08:54 Dose: 20 mg Gabapentin (Neurontin) 300 mg PO TID [facility] Last Admin: 08/07/17 08:54 Dose: 300 mg Hydromorphone HCl (Dilaudid) 1 mg IVPUSH Q4H PRN PRN Reason: Pain Last Admin: 08/07/17 10:44 Dose: 1 mg Ertapenem 1 gm/ Sodium (Chloride) 50 mls @ 100 mls/hr IV Q24H [facility] Last Admin: 08/06/17 16:51 Dose: 100 mls/hr Insulin Aspart (Novolog Mix 70-30) 15 unit SUBCUT BIDMEALS [facility] Last Admin: 08/07/17 08:55 Dose: 15 units Lorazepam (Ativan) 1 mg PO TID PRN PRN Reason: ANXIETY Last Admin: 08/07/17 10:44 Dose: 1 mg Metformin HCl (Glucophage) 1,000 mg PO BIDMEALS [facility] Last Admin: 08/07/17 08:54 Dose: 1,000 mg Metoprolol Succinate (Toprol Xl) 25 mg PO DAILY [facility] Last Admin: 08/07/17 08:54 Dose: 25 mg Nitroglycerin (Nitrostat) 0.4 mg SL ASDIRECTED PRN PRN Reason: Chest Pain Sodium Chloride (Saline Flush) 10 ml FLUSH ASDIRECTED PRN PRN Reason: Keep Vein Open Last Admin: 08/07/17 10:44 Dose: 10 ml Zolpidem Tartrate (Ambien) 5 mg PO BEDTIME PRN PRN Reason: Sleep Last Admin: 08/05/17 20:16 Dose: 5 mg Discontinued Medications Sodium Chloride (Normal Saline) 1,000 mls @ 125 mls/hr IV ASDIRECTED [facility] Last Admin: 08/05/17 02:02 Dose: 125 mls/hr Metformin HCl (Glucophage) 500 mg PO BIDMEALS [facility] Last Admin: 08/04/17 18:06 Dose: 500 mg Metformin HCl (Glucophage) 1,000 mg PO BIDMEALS [facility] Last Admin: 08/04/17 18:56 Dose: 500 mg - Exam Wound/Incisions: Dressing Dry and Intact, Erythema Lungs: Clear to Auscultation, Normal Respiratory Effort Cardiovascular: Regular Rate, Regular Rhythm GI/Abdominal Exam: Normal Bowel Sounds - Problem List & Annotations (1) Cellulitis of foot, left SNOMED Code(s): 824277048 Code(s): L03.116 - CELLULITIS OF LEFT LOWER LIMB Status: Acute Current Visit: No (2) Diabetes mellitus SNOMED Code(s): 77421295 Code(s): E11.9 - TYPE 2 DIABETES MELLITUS WITHOUT COMPLICATIONS Status: Acute Current Visit: No Qualifiers: Diabetes mellitus type: type 2 Diabetes mellitus [employer]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 snf insulin use status Diabetes mellitus complication detail : with foot ulcer (3) Foot ulcer due to secondary DM SNOMED Code(s): 1572697 Code(s): E13.621 - OTHER SPECIFIED DIABETES MELLITUS WITH FOOT ULCER; L97.509 - NON-PRESSURE CHRONIC ULCER OTH PRT UNSP FOOT W UNSP SEVERITY Status : Acute Current Visit: No - Problem List Review Problem List Initiated/Reviewed/Updated: Yes - My Orders Last 24 Hours: Medication Orders Hydrocodone Bitart/Acetaminophen ([place] 325-10 Mg) 1 tab PO Q6H PRN PRN Reason: Pain Last Admin: 08/07/17 07:04 Dose: 1 tab Admin: 08/07/17 01:37 Dose: 1 tab Admin: 08/06/17 16:37 Dose: 1 tab Admin: 08/06/17 09:18 Dose: 1 tab Albuterol/Ipratropium (Duoneb 3.0-0.5 Mg/3 Ml) 3 ml INH QID PRN PRN Reason: SHORTNESS OF BREATH Atorvastatin Calcium (Lipitor) 40 mg PO BEDTIME [facility] Last Admin: 08/06/17 21:08 Dose: 40 mg Admin: 08/05/17 20:15 Dose: 40 mg Admin: 08/04/17 21:17 Dose: 40 mg Enoxaparin Sodium (Lovenox) 40 mg SUBCUT DAILY [facility] Last Admin: 08/07/17 08:54 Dose: 40 mg Admin: 08/06/17 08:00 Dose: 40 mg Admin: 08/05/17 08:41 Dose: 40 mg Fluoxetine HCl (Prozac) 20 mg PO DAILY [facility] Last Admin: 08/07/17 08:54 Dose: 20 mg Admin: 08/06/17 08:01 Dose: 20 mg Admin: 08/05/17 08:41 Dose: 20 mg Gabapentin (Neurontin) 300 mg PO TID [facility] Last Admin: 08/07/17 08:54 Dose: 300 mg Admin: 08/06/17 21:08 Dose: 300 mg Admin: 08/06/17 13:45 Dose: 300 mg Admin: 08/06/17 08:01 Dose: 300 mg Admin: 08/05/17 20:15 Dose: 300 mg Admin: 08/05/17 13:47 Dose: 300 mg Admin: 08/05/17 08:41 Dose: 300 mg Admin: 08/04/17 21:17 Dose: 300 mg Hydromorphone HCl (Dilaudid) 1 mg IVPUSH Q4H PRN PRN Reason: Pain Last Admin: 08/07/17 10:44 Dose: 1 mg Admin: 08/06/17 20:08 Dose: 1 mg Admin: 08/06/17 06:24 Dose: 1 mg Admin: 08/05/17 16:42 Dose: 1 mg Admin: 08/05/17 10:26 Dose: 1 mg Admin: 08/05/17 04:17 Dose: 1 mg Admin: 08/04/17 18:54 Dose: 1 mg Ertapenem 1 gm/ Sodium (Chloride) 50 mls @ 100 mls/hr IV Q24H [facility] Last Admin: 08/06/17 16:51 Dose: 100 mls/hr Admin: 08/05/17 17:23 Dose: 100 mls/hr Admin: 08/04/17 17:11 Dose: 100 mls/hr Insulin Aspart (Novolog Mix 70-30) [facility] Last Admin: 08/07/17 08:55 Dose: 15 units Admin: 08/06/17 17:42 Dose: 15 units Admin: 08/06/17 07:59 Dose: 15 units Admin: 08/05/17 17:30 Dose: 15 units Admin: 08/05/17 08:39 Dose: 15 units Admin: 08/04/17 18:03 Dose: 15 units Lorazepam (Ativan) 1 mg PO TID PRN PRN Reason: ANXIETY Last Admin: 08/07/17 10:44 Dose: 1 mg Metformin HCl (Glucophage) 1,000 mg PO BIDMEALS [facility] Last Admin: 08/07/17 08:54 Dose: 1,000 mg Admin: 08/06/17 17:44 Dose: 1,000 mg Admin: 08/06/17 07:58 Dose: 1,000 mg Admin: 08/05/17 17:29 Dose: 1,000 mg Admin: 08/05/17 08:39 Dose: 1,000 mg Metoprolol Succinate (Toprol Xl) 25 mg PO DAILY [facility] Last Admin: 08/07/17 08:54 Dose: 25 mg Admin: 08/06/17 08:01 Dose: 25 mg Admin: 08/05/17 08:42 Dose: 25 mg Nitroglycerin (Nitrostat) 0.4 mg SL ASDIRECTED PRN PRN Reason: Chest Pain Sodium Chloride (Saline Flush) 10 ml FLUSH ASDIRECTED PRN PRN Reason: Keep Vein Open Last Admin: 08/07/17 10:44 Dose: 10 ml Admin: 08/06/17 20:09 Dose: 10 ml Admin: 08/06/17 17:13 Dose: 10 ml Admin: 08/06/17 06:25 Dose: 10 ml Admin: 08/05/17 10:28 Dose: 10 ml Zolpidem Tartrate (Ambien) 5 mg PO BEDTIME PRN PRN Reason: Sleep Last Admin: 08/05/17 20:16 Dose: 5 mg - Assessment Assessment (Free Text/Narrative):: stable exam tissue necrosis appears stabilized. - Plan Plan (Free Text/Narrative):: amputation of great toe left in am procedure and risks were explained to the pt to include bleeding, infection. he asks us to proceed.
[2017-08-07] MEDS: Ampicillin/Sulbactam Na 3 GM in Sodium Chloride 0.9% 100 ML IV SCH (18:52)
[2017-08-07] MEDS: atorvaSTATin 40 MG Tab PO SCH (21:07)
[2017-08-08] MEDS: Acetaminophen/HYDROcodone 325-10 MG Tab PO PRN (00:22)
[2017-08-08] MEDS: Ampicillin/Sulbactam Na 3 GM in Sodium Chloride 0.9% 100 ML IV SCH ×4 (00:23→18:25)
[2017-08-08] MEDS: Zolpidem 5 MG Tab PO PRN (00:23)
[2017-08-08] MEDS: Sodium Chloride 0.9% 10 ML Syringe FLUSH PRN ×6 (00:34→18:27)
[2017-08-08] MEDS: HYDROmorphone 2 MG/ML SDV IVPUSH PRN ×3 (07:50→21:11)
[2017-08-08] MEDS: metFORMIN 1,000 MG Tab PO SCH ×2 (07:54→18:22)
[2017-08-08] MEDS: Insuln Aspart Prot/Insulin Aspart 100 Units/ML 3 ML FlexPen SUBCUT SCH ×2 (07:54→18:21)
[2017-08-08] MEDS ORDERED: Midazolam 1 MG/ML 2 ML SDV IV ONE (09:11)
[2017-08-08] MEDS ORDERED: Propofol 200 MG/20 ML SDV IV ONE (09:11)
[2017-08-08] MEDS ORDERED: fentaNYL 100 MCG/2 ML SDV IV ONE (09:11)
[2017-08-08] MEDS ORDERED: Lidocaine 1% 20 ML MDV INJECT ONE (09:25)
[2017-08-08] MEDS ORDERED: Bupivacaine 0.5% 30 ML SDV INJECT ONE (09:25)
--- NOTE | 2017-08-08 10:05 | PCM.OPNOTE ---
- General Post-Op/Procedure Note Date of Surgery/Procedure: 08/08/17 Operative Procedure(s): amputation of distal left great toe Findings: viable tissue proximal to necrosis amputation mid mid phalanx Pre Op Diagnosis: necrosis tip of left great toe Post-Op Diagnosis: Same Anesthesia Technique: Local (10 ml 1 % ldio/ 0.5% buvipicaine), MAC Primary Surgeon: Driss Polanco Anesthesia Provider: Kavitha Moreno Pathology: toe left great EBL in mLs: 2 Complications: None Condition: Good Free Text/Narrative:: Intake & Output 08/07/17 08/08/17 08/08/17 22:59 06:59 14:59 Intake Total 190 Balance 190 see dictation
[2017-08-08] MEDS: Enoxaparin 40 MG/0.4 ML Syringe SUBCUT SCH (12:35)
[2017-08-08] MEDS: Gabapentin 300 MG Cap PO SCH ×3 (12:36→20:52)
[2017-08-08] MEDS: Metoprolol Succinate 25 MG Tab.ER PO SCH (12:40)
[2017-08-08] MEDS: FLUoxetine 20 MG Cap PO SCH (12:40)
--- NOTE | 2017-08-08 16:31 | OR ---
DATE OF OPERATION: 08/08/2017 SURGEON: Driss Polanco MD PROCEDURE PERFORMED: Amputation of distal left great toe. PREOPERATIVE DIAGNOSES: 1. Necrosis secondary to trauma of the left great toe. 2. Type 2 diabetes. 3. Peripheral vascular disease. POSTOPERATIVE DIAGNOSES: 1. Necrosis secondary to trauma of the left great toe. 2. Type 2 diabetes. 3. Peripheral vascular disease. INDICATIONS FOR PROCEDURE: This is a 71-year-old white male who, one week ago, bumped his toe, was seen in clinic on Friday, and was noted to have necrosis of the tissue with exposure of bone. He was admitted for IV antibiotics, and today, was taken to the operating room for amputation of the necrotic tissue. INTRAOPERATIVE FINDINGS: A total of 10 mL of a 1:1 mixture of 1% lidocaine and 0.5% bupivacaine was used. The level of the amputation was through the mid phalanx with primary closure. DESCRIPTION OF OPERATION: After an excellent IV sedation was administered, the patient's foot was prepped and draped in the usual sterile manner. Digital block was set up with our local mixture by injecting circumferentially at the base of the great toe and in the area of our planned incision. A circular incision was then carried out down to the interphalangeal joint, and the necrotic tissue was excised and passed off the field. We then used a periosteal elevator, retracted back our tissue circumferentially, and cut off the head of the mid phalange. This was passed off the field as well. The flexor tendon of the toe was grasped, extended, and transected to have that retract as well. The area was irrigated. Initially, when we made our initial incision, there was really no active bleeding; however, in the course of debriding the tissue, the tissue did start to ooze, and we actually had good arterial flow and bleeding into the tissue. There were 2 areas that did require judicious use of the cautery to prevent further hemorrhage. The wound was then closed with several interrupted vertical mattress sutures followed by several interrupted sutures to approximate the tissue together. The wound was then dressed, and the patient was taken back to recovery room in good condition. /[id number] /ALFREDOL
[2017-08-08] MEDS: atorvaSTATin 40 MG Tab PO SCH (20:52)
[2017-08-09] MEDS: Ampicillin/Sulbactam Na 3 GM in Sodium Chloride 0.9% 100 ML IV SCH ×2 (00:24→05:35)
[2017-08-09] MEDS: Sodium Chloride 0.9% 10 ML Syringe FLUSH PRN ×2 (01:24→06:21)
[2017-08-09] MEDS: Acetaminophen/HYDROcodone 325-10 MG Tab PO PRN ×3 (06:11→18:47)
--- NOTE | 2017-08-09 08:28 | PCM.SURGPN ---
- General Info Date of Service: 08/09/17 POD#: 1 Functional Status: Reports: Pain Controlled, Tolerating Diet, Ambulating ( crutch ) - Review of Systems Pulmonary: Reports: No Symptoms Cardiovascular: Reports: No Symptoms Gastrointestinal: Reports: No Symptoms - Patient Data Vitals - Most Recent: Last Vital Signs Temp 37.2 C 08/09/17 06:00 Pulse 78 08/09/17 06:00 Resp 18 08/09/17 06:00 BP 150/86 H 08/09/17 06:00 Pulse Ox 94 L 08/09/17 06:00 Weight - Most Recent: 90.356 kg I&O - Last 24 Hours: Intake & Output 08/08/17 08/09/17 08/09/17 22:59 06:59 14:59 Intake Total 200 Balance 200 Lab Results Last 24 Hrs: Laboratory Results - last 24 hr 08/08/17 08/08/17 08/08/17 Range/Units 07:00 11:11 16:55 POC Glucose 94 144 H 239 H D (80-116) mg/dL 08/08/17 Range/Units 20:50 POC Glucose 189 H (80-116) mg/dL Med Orders - Current: Current Medications Hydrocodone Bitart/Acetaminophen ([place] 325-10 Mg) 2 tab PO Q4H PRN PRN Reason: Pain Last Admin: 08/09/17 06:11 Dose: 2 tab Albuterol/Ipratropium (Duoneb 3.0-0.5 Mg/3 Ml) 3 ml INH QID PRN PRN Reason: SHORTNESS OF BREATH Atorvastatin Calcium (Lipitor) 40 mg PO BEDTIME [facility] Last Admin: 08/08/17 20:52 Dose: 40 mg Enoxaparin Sodium (Lovenox) 40 mg SUBCUT DAILY [facility] Last Admin: 08/08/17 12:35 Dose: 40 mg Fluoxetine HCl (Prozac) 20 mg PO DAILY [facility] Last Admin: 08/08/17 12:40 Dose: 20 mg Gabapentin (Neurontin) 300 mg PO TID [facility] Last Admin: 08/08/17 20:52 Dose: 300 mg Hydromorphone HCl (Dilaudid) 1 mg IVPUSH Q4H PRN PRN Reason: Pain Last Admin: 08/08/17 21:11 Dose: 1 mg Ampicillin Sodium/Sulbactam (Sodium 3 gm/ Sodium Chloride) 100 mls @ 200 mls/ hr IV Q6H [facility] Last Admin: 08/09/17 05:35 Dose: 200 mls/hr Insulin Aspart (Novolog Mix 70-30) [facility] Last Admin: 08/08/17 18:21 Dose: 15 units Lorazepam (Ativan) 1 mg PO TID PRN PRN Reason: ANXIETY Last Admin: 08/07/17 10:44 Dose: 1 mg Metformin HCl (Glucophage) 1,000 mg PO BIDMEALS [facility] Last Admin: 08/08/17 18:22 Dose: 1,000 mg Metoprolol Succinate (Toprol Xl) 25 mg PO DAILY [facility] Last Admin: 08/08/17 12:40 Dose: 25 mg Nitroglycerin (Nitrostat) 0.4 mg SL ASDIRECTED PRN PRN Reason: Chest Pain Sodium Chloride (Saline Flush) 10 ml FLUSH ASDIRECTED PRN PRN Reason: Keep Vein Open Last Admin: 08/09/17 06:21 Dose: 10 ml Zolpidem Tartrate (Ambien) 5 mg PO BEDTIME PRN PRN Reason: Sleep Last Admin: 08/08/17 00:23 Dose: 5 mg Discontinued Medications Hydrocodone Bitart/Acetaminophen ([place] 325-10 Mg) 1 tab PO Q6H PRN PRN Reason: Pain Last Admin: 08/08/17 00:22 Dose: 1 tab Bupivacaine HCl (Marcaine 0.5%) 10 ml INJECT .STK-MED ONE Stop: 08/08/17 09:26 Last Admin: 08/08/17 09:25 Dose: 10 ml Fentanyl (Sublimaze) 100 mcg IV .STK-MED ONE Stop: 08/08/17 09:12 Sodium Chloride (Normal Saline) 1,000 mls @ 125 mls/hr IV ASDIRECTED [facility] Last Admin: 08/05/17 02:02 Dose: 125 mls/hr Ertapenem 1 gm/ Sodium (Chloride) 50 mls @ 100 mls/hr IV Q24H [facility] Last Admin: 08/06/17 16:51 Dose: 100 mls/hr Lidocaine HCl (Xylocaine 1%) 10 ml INJECT .STK-MED ONE Stop: 08/08/17 09:26 Last Admin: 08/08/17 09:25 Dose: 10 ml Metformin HCl (Glucophage) 500 mg PO BIDMEALS [facility] Last Admin: 08/04/17 18:06 Dose: 500 mg Metformin HCl (Glucophage) 1,000 mg PO BIDMEALS [facility] Last Admin: 08/04/17 18:56 Dose: 500 mg Midazolam HCl (Versed 1 Mg/Ml) 2 mg IV .STK-MED ONE Stop: 08/08/17 09:12 Propofol (Diprivan 20 Ml) 20 mg IV .STK-MED ONE Stop: 08/08/17 09:12 - Exam Wound/Incisions: No Drainage, Erythema Improving, Other (some old blood on the dressing) Lungs: Clear to Auscultation, Normal Respiratory Effort Cardiovascular: Regular Rate, Regular Rhythm Skin: Warm, Dry, Intact - Problem List & Annotations (1) Cellulitis of foot, left SNOMED Code(s): 200816071 Code(s): L03.116 - CELLULITIS OF LEFT LOWER LIMB Status: Acute Current Visit: No (2) Diabetes mellitus SNOMED Code(s): 50611152 Code(s): E11.9 - TYPE 2 DIABETES MELLITUS WITHOUT COMPLICATIONS Status: Acute Current Visit: No Qualifiers: Diabetes mellitus type: type 2 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 use status Diabetes mellitus complication detail : with foot ulcer (3) Foot ulcer due to secondary DM SNOMED Code(s): 5625085 Code(s): E13.621 - OTHER SPECIFIED DIABETES MELLITUS WITH FOOT ULCER; L97.509 - NON-PRESSURE CHRONIC ULCER OTH PRT UNSP FOOT W UNSP SEVERITY Status : Acute Current Visit: No - Problem List Review Problem List Initiated/Reviewed/Updated: Yes - My Orders Last 24 Hours: Active Orders 24 hr Category Date Time Status PT Evaluation and Treatment [CONS] Routine Cons 08/08/17 10:01 Active Acetaminophen/HYDROcodone [[place]ana 325-10 MG] Med 08/08/17 10:06 Active 2 tab PO Q4H PRN Medication Orders Hydrocodone Bitart/Acetaminophen ([place] 325-10 Mg) 2 tab PO Q4H PRN PRN Reason: Pain Last Admin: 08/09/17 06:11 Dose: 2 tab Albuterol/Ipratropium (Duoneb 3.0-0.5 Mg/3 Ml) 3 ml INH QID PRN PRN Reason: SHORTNESS OF BREATH Atorvastatin Calcium (Lipitor) 40 mg PO BEDTIME [facility] Last Admin: 08/08/17 20:52 Dose: 40 mg Admin: 08/07/17 21:07 Dose: 40 mg Admin: 08/06/17 21:08 Dose: 40 mg Admin: 08/05/17 20:15 Dose: 40 mg Admin: 08/04/17 21:17 Dose: 40 mg Enoxaparin Sodium (Lovenox) 40 mg SUBCUT DAILY [facility] Last Admin: 08/08/17 12:35 Dose: 40 mg Admin: 08/07/17 08:54 Dose: 40 mg Admin: 08/06/17 08:00 Dose: 40 mg Admin: 08/05/17 08:41 Dose: 40 mg Fluoxetine HCl (Prozac) 20 mg PO DAILY [facility] Last Admin: 08/08/17 12:40 Dose: 20 mg Admin: 08/07/17 08:54 Dose: 20 mg Admin: 08/06/17 08:01 Dose: 20 mg Admin: 08/05/17 08:41 Dose: 20 mg Gabapentin (Neurontin) 300 mg PO TID [facility] Last Admin: 08/08/17 20:52 Dose: 300 mg Admin: 08/08/17 16:20 Dose: 300 mg Admin: 08/08/17 12:36 Dose: 300 mg Admin: 08/07/17 21:07 Dose: 300 mg Admin: 08/07/17 13:43 Dose: 300 mg Admin: 08/07/17 08:54 Dose: 300 mg Admin: 08/06/17 21:08 Dose: 300 mg Admin: 08/06/17 13:45 Dose: 300 mg Admin: 08/06/17 08:01 Dose: 300 mg Admin: 08/05/17 20:15 Dose: 300 mg Admin: 08/05/17 13:47 Dose: 300 mg Admin: 08/05/17 08:41 Dose: 300 mg Admin: 08/04/17 21:17 Dose: 300 mg Hydromorphone HCl (Dilaudid) 1 mg IVPUSH Q4H PRN PRN Reason: Pain Last Admin: 08/08/17 21:11 Dose: 1 mg Admin: 08/08/17 15:00 Dose: 1 mg Admin: 08/08/17 07:50 Dose: 1 mg Admin: 08/07/17 19:43 Dose: 1 mg Admin: 08/07/17 10:44 Dose: 1 mg Admin: 08/06/17 20:08 Dose: 1 mg Admin: 08/06/17 06:24 Dose: 1 mg Admin: 08/05/17 16:42 Dose: 1 mg Admin: 08/05/17 10:26 Dose: 1 mg Admin: 08/05/17 04:17 Dose: 1 mg Admin: 08/04/17 18:54 Dose: 1 mg Ampicillin Sodium/Sulbactam (Sodium 3 gm/ Sodium Chloride) 100 mls @ 200 mls/ hr IV Q6H [facility] Last Admin: 08/09/17 05:35 Dose: 200 mls/hr Admin: 08/09/17 00:24 Dose: 200 mls/hr Admin: 08/08/17 18:25 Dose: 200 mls/hr Admin: 08/08/17 12:29 Dose: 200 mls/hr Admin: 08/08/17 06:47 Dose: 200 mls/hr Admin: 08/08/17 00:23 Dose: 200 mls/hr Admin: 08/07/17 18:52 Dose: 200 mls/hr Insulin Aspart (Novolog Mix 70-30) 15 unit SUBCUT [facility] Last Admin: 08/08/17 18:21 Dose: 15 units Admin: 08/08/17 07:54 Dose: Admin: 08/07/17 18:54 Dose: 15 units Admin: 08/07/17 08:55 Dose: 15 units Admin: 08/06/17 17:42 Dose: 15 units Admin: 08/06/17 07:59 Dose: 15 units Admin: 08/05/17 17:30 Dose: 15 units Admin: 08/05/17 08:39 Dose: 15 units Admin: 08/04/17 18:03 Dose: 15 units Lorazepam (Ativan) 1 mg PO TID PRN PRN Reason: ANXIETY Last Admin: 08/07/17 10:44 Dose: 1 mg Metformin HCl (Glucophage) 1,000 mg PO BIDMEALS [facility] Last Admin: 08/08/17 18:22 Dose: 1,000 mg Admin: 08/08/17 07:54 Dose: Admin: 08/07/17 18:54 Dose: 1,000 mg Admin: 08/07/17 08:54 Dose: 1,000 mg Admin: 08/06/17 17:44 Dose: 1,000 mg Admin: 08/06/17 07:58 Dose: 1,000 mg Admin: 08/05/17 17:29 Dose: 1,000 mg Admin: 08/05/17 08:39 Dose: 1,000 mg Metoprolol Succinate (Toprol Xl) 25 mg PO DAILY [facility] Last Admin: 08/08/17 12:40 Dose: 25 mg Admin: 08/07/17 08:54 Dose: 25 mg Admin: 08/06/17 08:01 Dose: 25 mg Admin: 08/05/17 08:42 Dose: 25 mg Nitroglycerin (Nitrostat) 0.4 mg SL ASDIRECTED PRN PRN Reason: Chest Pain Sodium Chloride (Saline Flush) 10 ml FLUSH ASDIRECTED PRN PRN Reason: Keep Vein Open Last Admin: 08/09/17 06:21 Dose: 10 ml Admin: 08/09/17 01:24 Dose: 10 ml Admin: 08/08/17 18:27 Dose: 10 ml Admin: 08/08/17 14:59 Dose: 10 ml Admin: 08/08/17 12:29 Dose: 10 ml Admin: 08/08/17 07:50 Dose: 10 ml Admin: 08/08/17 06:52 Dose: 10 ml Admin: 08/08/17 00:34 Dose: 10 ml Admin: 08/07/17 10:44 Dose: 10 ml Admin: 08/06/17 20:09 Dose: 10 ml Admin: 08/06/17 17:13 Dose: 10 ml Admin: 08/06/17 06:25 Dose: 10 ml Admin: 08/05/17 10:28 Dose: 10 ml Zolpidem Tartrate (Ambien) 5 mg PO BEDTIME PRN PRN Reason: Sleep Last Admin: 08/08/17 00:23 Dose: 5 mg Admin: 08/05/17 20:16 Dose: 5 mg - Assessment Assessment (Free Text/Narrative):: unremarkable post op exam - Plan Plan (Free Text/Narrative):: continue current rx anticipate dx in am.
[2017-08-09] MEDS: metFORMIN 1,000 MG Tab PO SCH ×2 (08:54→17:40)
[2017-08-09] MEDS: Insuln Aspart Prot/Insulin Aspart 100 Units/ML 3 ML FlexPen SUBCUT SCH ×2 (08:55→17:40)
[2017-08-09] MEDS: Metoprolol Succinate 25 MG Tab.ER PO SCH (09:00)
[2017-08-09] MEDS: Enoxaparin 40 MG/0.4 ML Syringe SUBCUT SCH (09:00)
[2017-08-09] MEDS: FLUoxetine 20 MG Cap PO SCH (09:00)
[2017-08-09] MEDS: Gabapentin 300 MG Cap PO SCH ×3 (09:00→21:03)
[2017-08-09] MEDS: Amoxicillin/Clavulanate K 875-125 MG Tab PO SCH ×2 (10:00→20:32)
[2017-08-09] MEDS: atorvaSTATin 40 MG Tab PO SCH (21:03)
[2017-08-10] MEDS: Acetaminophen/HYDROcodone 325-10 MG Tab PO PRN ×2 (00:30→10:44)
[2017-08-10] MEDS: metFORMIN 1,000 MG Tab PO SCH (08:18)
[2017-08-10] MEDS: Insuln Aspart Prot/Insulin Aspart 100 Units/ML 3 ML FlexPen SUBCUT SCH (08:18)
[2017-08-10] MEDS: Gabapentin 300 MG Cap PO SCH (08:19)
[2017-08-10] MEDS: Amoxicillin/Clavulanate K 875-125 MG Tab PO SCH (08:19)
[2017-08-10] MEDS: Metoprolol Succinate 25 MG Tab.ER PO SCH (08:20)
[2017-08-10] MEDS: FLUoxetine 20 MG Cap PO SCH (08:20)
[2017-08-10] MEDS: Enoxaparin 40 MG/0.4 ML Syringe SUBCUT SCH (08:21)
[2017-08-10 09:22] VITALS: BP 148/67
--- NOTE | 2017-08-10 09:39 | PCM.DCSUM1 ---
Discharge Summary - Hospital Course Free Text/Narrative:: Pt was admitted and placed on IV antibiotics. There was no further extension of the necrosis involving the left great toe and he was underwent an amputation of the distal phalange. Post operative course has been unremarkable. Wound is healing, with no further signs of infection. - Discharge Data Discharge Date: 08/10/17 Discharge Disposition: Home, Self-Care 01 Condition: Good - Discharge Diagnosis/Problem(s) (1) Cellulitis of foot, left SNOMED Code(s): 740754342 ICD Code: L03.116 - CELLULITIS OF LEFT LOWER LIMB Status: Acute Current Visit: No (2) Diabetes mellitus SNOMED Code(s): 25980462 ICD Code: E11.9 - TYPE 2 DIABETES MELLITUS WITHOUT COMPLICATIONS Status: Acute Current Visit: No Qualifiers: Diabetes mellitus type: type 2 Diabetes mellitus correction insulin use: unspecified correction insulin use status Diabetes mellitus complication detail : with foot ulcer (3) Foot ulcer due to secondary DM SNOMED Code(s): 9158825 ICD Code: E13.621 - OTHER SPECIFIED DIABETES MELLITUS WITH FOOT ULCER; L97.509 - NON-PRESSURE CHRONIC ULCER OTH PRT UNSP FOOT W UNSP SEVERITY Status : Acute Current Visit: No - Patient Summary/Data Operative Procedure(s) Performed: amputation of distal left great toe Consults: Consultations 08/08/17 10:01 PT Evaluation and Treatment [CONS] Routine Please Evaluate and Treat. PT Reason for Consult: left toe amputation Special Instructions: crutch walking This query below is only for informational purposes and is not editable. Admission Diagnosis/Problem: Osteomyelitis of toe of left foot - Patient Instructions Diet: Usual Diet as Tolerated Activity: No Strenuous Activities, Partial Weight Bearing (crutch walking ) Wound/Incision Care: Keep Operative Site/Wound Site Clean and Dry, Do NOT Change Dressing Notify Provider of: Increased Pain - Discharge Plan Prescriptions/Med Rec: Amoxicillin/Clavulanate K [Augmentin 875-125 MG] 1 tab PO Q12H #8 tablet Home Medications: Home Meds Albuterol/Ipratropium [Combivent] 2 puff INH QID PRN 05/11/13 [History] Aspirin 325 mg PO DAILY 05/11/13 [History] Furosemide [Lasix] 40 mg PO DAILY 05/11/13 [History] Metoprolol Succinate 25 mg PO DAILY 05/11/13 [History] metFORMIN [Glucophage] 1,000 mg PO BID 05/11/13 [History] LORazepam [Ativan] 1 - 2 tab PO TID PRN 05/13/13 [History] Nitroglycerin [Nitrostat] 0.4 mg SL ASDIRECTED PRN 05/13/13 [History] oxyCODONE HCl/Acetaminophen [Oxycodone-Acetaminophen 10-650] 1 tab PO Q6HR PRN 05/13/13 [History] FLUoxetine [PROzac] 20 mg PO DAILY 01/24/17 [History] Insulin NPH Hum/Reg Insulin Hm [Novolin 70-30 100 Unit/ml Vial] 15 unit SQ BID 01/24/17 [History] atorvaSTATin [Lipitor] 40 mg PO BEDTIME 01/24/17 [History] Cephalexin [Keflex] 500 mg PO Q6H #40 cap 08/01/17 [Rx] Gabapentin [Neurontin] 300 mg PO TID 08/04/17 [History] Amoxicillin/Clavulanate K [Augmentin 875-125 MG] 1 tab PO Q12H #8 tablet [Rx] Patient Handouts: Preventing Antibiotic Resistance - Discharge Summary/Plan Comment DC Time >30 min.: No - Patient Data Vitals - Most Recent: Last Vital Signs Temp 36.8 C 08/10/17 08:00 Pulse 87 08/10/17 08:20 Resp 18 08/10/17 08:00 BP 135/78 08/10/17 08:20 Pulse Ox 96 08/10/17 08:00 Weight - Most Recent: 90.356 kg I&O - Last 24 hours: Intake & Output 08/09/17 08/10/17 08/10/17 22:59 06:59 14:59 Intake Total 230 Balance 230 Lab Results - Last 24 hrs: Laboratory Results - last 24 hr 08/09/17 08/09/17 08/09/17 Range/Units 06:16 11:39 17:10 POC Glucose 129 H 158 H 129 H (80-116) mg/dL 08/09/17 08/10/17 Range/Units 21:02 06:18 POC Glucose 113 81 (80-116) mg/dL Med Orders - Current: Current Medications Hydrocodone Bitart/Acetaminophen ([place] 325-10 Mg) 2 tab PO Q4H PRN PRN Reason: Pain Last Admin: 08/10/17 00:30 Dose: 2 tab Albuterol/Ipratropium (Duoneb 3.0-0.5 Mg/3 Ml) 3 ml INH QID PRN PRN Reason: SHORTNESS OF BREATH Amoxicillin/Clavulanate Potassium (Augmentin 875 Mg/125 Mg) 1 tab PO Q12H [facility] Last Admin: 08/10/17 08:19 Dose: 1 tab Atorvastatin Calcium (Lipitor) 40 mg PO BEDTIME [facility] Last Admin: 08/09/17 21:03 Dose: 40 mg Enoxaparin Sodium (Lovenox) 40 mg SUBCUT DAILY [facility] Last Admin: 08/10/17 08:21 Dose: 40 mg Fluoxetine HCl (Prozac) 20 mg PO DAILY [facility] Last Admin: 08/10/17 08:20 Dose: 20 mg Gabapentin (Neurontin) 300 mg PO TID [facility] Last Admin: 08/10/17 08:19 Dose: 300 mg Hydromorphone HCl (Dilaudid) 1 mg IVPUSH Q4H PRN PRN Reason: Pain Last Admin: 08/08/17 21:11 Dose: 1 mg Insulin Aspart (Novolog Mix 70-30) 15 unit SUBCUT BIDMEALS [facility] Last Admin: 08/10/17 08:18 Dose: 15 units Lorazepam (Ativan) 1 mg PO TID PRN PRN Reason: ANXIETY Last Admin: 08/07/17 10:44 Dose: 1 mg Metformin HCl (Glucophage) 1,000 mg PO BIDMEALS [facility] Last Admin: 08/10/17 08:18 Dose: 1,000 mg Metoprolol Succinate (Toprol Xl) 25 mg PO DAILY [facility] Last Admin: 08/10/17 08:20 Dose: 25 mg Nitroglycerin (Nitrostat) 0.4 mg SL ASDIRECTED PRN PRN Reason: Chest Pain Sodium Chloride (Saline Flush) 10 ml FLUSH ASDIRECTED PRN PRN Reason: Keep Vein Open Last Admin: 08/09/17 06:21 Dose: 10 ml Zolpidem Tartrate (Ambien) 5 mg PO BEDTIME PRN PRN Reason: Sleep Last Admin: 08/08/17 00:23 Dose: 5 mg Discontinued Medications Hydrocodone Bitart/Acetaminophen ([place] 325-10 Mg) 1 tab PO Q6H PRN PRN Reason: Pain Last Admin: 08/08/17 00:22 Dose: 1 tab Bupivacaine HCl (Marcaine 0.5%) 10 ml INJECT .STK-MED ONE Stop: 08/08/17 09:26 Last Admin: 08/08/17 09:25 Dose: 10 ml Fentanyl (Sublimaze) 100 mcg IV .STK-MED ONE Stop: 08/08/17 09:12 Sodium Chloride (Normal Saline) 1,000 mls @ 125 mls/hr IV ASDIRECTED [facility] Last Admin: 08/05/17 02:02 Dose: 125 mls/hr Ertapenem 1 gm/ Sodium (Chloride) 50 mls @ 100 mls/hr IV Q24H [facility] Last Admin: 08/06/17 16:51 Dose: 100 mls/hr Ampicillin Sodium/Sulbactam (Sodium 3 gm/ Sodium Chloride) 100 mls @ 200 mls/ hr IV Q6H [facility] Last Admin: 08/09/17 05:35 Dose: 200 mls/hr Lidocaine HCl (Xylocaine 1%) 10 ml INJECT .K-MED ONE Stop: 08/08/17 09:26 Last Admin: 08/08/17 09:25 Dose: 10 ml Metformin HCl (Glucophage) 500 mg PO BIDMEALS [facility] Last Admin: 08/04/17 18:06 Dose: 500 mg Metformin HCl (Glucophage) 1,000 mg PO BIDMEALS [facility] Last Admin: 08/04/17 18:56 Dose: 500 mg Midazolam HCl (Versed 1 Mg/Ml) 2 mg IV .STK-MED ONE Stop: 08/08/17 09:12 Propofol (Diprivan 20 Ml) 20 mg IV .K-MED ONE Stop: 08/08/17 09:12 *Q Meaningful Use (DIS) - VTE *Q VTE Anticoagulation Contraindications: Medical/Procedure Contrai
== END 2017-08-10 11:42 | disposition home or self-care (01) | DRG 256 ==
LOC: FB.MS 14:39
PROVIDERS: ADMIT Surgery; ATTEND Surgery
PROC: 0Y6Q0Z2 Detachment at Left 1st Toe, Mid, Open Approach (ICD-10-PCS; principal; 2017-08-08)
DX: E11.52 Type 2 diabetes mellitus with diabetic peripheral angiopathy with gangrene (principal); I96 Gangrene, not elsewhere classified; L03.116 Cellulitis of left lower limb; I25.110 Atherosclerotic heart disease of native coronary artery with unstable angina pectoris; I50.32 Chronic diastolic (congestive) heart failure; Z79.4 Long term (current) use of insulin; E11.42 Type 2 diabetes mellitus with diabetic polyneuropathy; L97.509 Non-pressure chronic ulcer of other part of unspecified foot with unspecified severity; Z89.422 Acquired absence of other left toe(s); I11.0 Hypertensive heart disease with heart failure; Z95.1 Presence of aortocoronary bypass graft; Z87.891 Personal history of nicotine dependence; Z95.5 Presence of coronary angioplasty implant and graft; Z86.73 Personal history of transient ischemic attack (TIA), and cerebral infarction without residual deficits; E02 Subclinical iodine-deficiency hypothyroidism; Z79.82 Long term (current) use of aspirin
CPT/HCPCS: 36415; 73630-LT; 80048; 82962; 85025; 97161-GP; A9270-GY; J0295; J1170; J1335; J1650; J2250; J2704; J3010; J7030; J7040; J7050

== ENCOUNTER 2019-09-20 21:39 | Emergency (ER) | payer MEDICARE, BC ==
[2019-09-20] MEDS ORDERED: LORazepam 0.5 MG Tab PO ONE (23:10)
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
[2019-09-21 00:31] VITALS: BP 155/90; PULSE 72
== END 2019-09-21 00:20 | disposition home or self-care (01) ==
LOC: FB.ED 21:39
DX: N40.1 Benign prostatic hyperplasia with lower urinary tract symptoms (principal); R33.8 Other retention of urine; J44.9 Chronic obstructive pulmonary disease, unspecified; I25.10 Atherosclerotic heart disease of native coronary artery without angina pectoris; I11.0 Hypertensive heart disease with heart failure; I50.9 Heart failure, unspecified; I25.2 Old myocardial infarction; E11.42 Type 2 diabetes mellitus with diabetic polyneuropathy; M19.90 Unspecified osteoarthritis, unspecified site; Z79.82 Long term (current) use of aspirin; E11.51 Type 2 diabetes mellitus with diabetic peripheral angiopathy without gangrene; F41.9 Anxiety disorder, unspecified; F32.9 Major depressive disorder, single episode, unspecified; E11.9 Type 2 diabetes mellitus without complications; E03.9 Hypothyroidism, unspecified; E66.9 Obesity, unspecified; Z79.4 Long term (current) use of insulin; Z79.899 Other long term (current) drug therapy; Z86.73 Personal history of transient ischemic attack (TIA), and cerebral infarction without residual deficits; Z99.81 Dependence on supplemental oxygen
CPT/HCPCS: 36415; 71046; 80053; 81001; 83880; 84484; 85025; 93005; 99283; 99285; A9270

== ENCOUNTER 2019-11-16 06:36 | Day surgery (SDC) | payer MEDICARE, BC ==
[~2019-11-16 06:36] MED LIST: Sodium Chloride 0.9% 10 ML Syringe FLUSH PRN
[2019-11-16] MEDS ORDERED: Midazolam 1 MG/ML 2 ML SDV IV ONE (06:37)
[2019-11-16] MEDS ORDERED: fentaNYL 100 MCG/2 ML SDV IV ONE (06:37)
[2019-11-16] MEDS ORDERED: Lactated Ringers 1,000 ML IV SCH (06:45)
[2019-11-16] MEDS ORDERED: acetaZOLAMIDE 500 MG Cap.ER PO ONE (09:00)
--- NOTE | 2019-11-16 09:37 | OR ---
DATE OF OPERATION: 11/16/2019 SURGEON: Gabby Valdez MD PREOPERATIVE DIAGNOSES: 1. Visually significant cataract, right eye. 2. Floppy iris syndrome, right eye. POSTOPERATIVE DIAGNOSES: 1. Visually significant cataract, right eye. 2. Floppy iris syndrome, right eye. PROCEDURES PERFORMED: Complex phacoemulsification and intraocular lens placement, [place] [address]. ASSISTANTS: None. ANESTHESIA: Local with sedation. COMPLICATIONS: None. BLOOD LOSS: None. IMPLANTS: Jignesh ACU0T0 21.0 diopter lens implanted. CDE: 1.89. DESCRIPTION OF PROCEDURE: After risks and benefits were reviewed with the patient, consent was obtained in the preoperative area, and the operative eye was marked with a surgical pen. In the preoperative area, a pledget was used to dilate the pupil consisting of a mixture of phenylephrine 10%, cyclopentolate 2%, moxifloxacin 0.5%, and bupivacaine 0.75%. The patient was taken to the operating room, where a time-out was performed, and the patient was placed under monitored anesthesia care. Topical tetracaine was used for anesthesia. The operative eye was prepped and draped for ophthalmic surgery, and the microscope was brought into position and focused. A paracentesis incision was made, followed by injection of preservative-free 1% lidocaine into the anterior chamber, followed by injection of Viscoat into the anterior chamber. A Malyugin ring 7.0 mm was used to retract the iris due to poor dilation and floppy iris syndrome. A microkeratome blade was used to make a corneal limbal incision temporally. A cystotome was used to make the beginning of the capsulorrhexis, which was carried around 360 degrees in a curvilinear fashion using Utrata forceps. A Miller cannula with BSS was used to hydrodissect and hydrodelineate the nucleus. The nucleus was removed in a divide and conquer manner using phacoemulsification. Irrigation and aspiration were used to remove the remaining cortical material. Provisc was used to inflate the capsular bag, and a pre-loaded Jignesh ACU0T0 21.0 diopter lens, serial number [id number] was injected into the capsular bag. A Sinskey hook was used to position and center the lens. The Malyugin ring was removed and discarded. Next, irrigation and aspiration was used to remove any remaining viscoelastic and cortical material from the anterior chamber. BSS on a cannula was used to inflate the anterior chamber and hydrate the wound. The wound was checked and found to be watertight. 1 mg of Moxifloxacin was injected into the anterior chamber. Drapes were removed and the eye was cleaned. A drop of brimonidine 0.15% and a drop of TobraDex was placed. The eye was shielded, and the patient was taken to the recovery room in stable condition. /[id number] BETH/AINSLEY CC: JORGE HALL CNP MTDD
[2019-11-16 14:12] VITALS: BP 105/65; PULSE 65
== END 2019-11-16 10:01 | disposition home or self-care (01) ==
LOC: FB.SDS 06:36
PROVIDERS: ATTEND Ophthalmology
DX: E11.36 Type 2 diabetes mellitus with diabetic cataract (principal); H25.813 Combined forms of age-related cataract, bilateral; H02.886 Meibomian gland dysfunction of left eye, unspecified eyelid; H02.883 Meibomian gland dysfunction of right eye, unspecified eyelid; I11.0 Hypertensive heart disease with heart failure; J44.9 Chronic obstructive pulmonary disease, unspecified; I50.32 Chronic diastolic (congestive) heart failure; I25.10 Atherosclerotic heart disease of native coronary artery without angina pectoris; E11.42 Type 2 diabetes mellitus with diabetic polyneuropathy; H21.81 Floppy iris syndrome; N40.0 Benign prostatic hyperplasia without lower urinary tract symptoms; E78.5 Hyperlipidemia, unspecified; E03.8 Other specified hypothyroidism; D64.9 Anemia, unspecified; Z87.891 Personal history of nicotine dependence; Z79.899 Other long term (current) drug therapy
CPT/HCPCS: 00142-QZ; 82962; A9270-GY; J2250; J3010; J7120; V2632

== ENCOUNTER 2019-11-30 06:31 | Day surgery (SDC) | payer MEDICARE, BC ==
[2019-11-30] MEDS ORDERED: Midazolam 1 MG/ML 2 ML SDV IV ONE (06:32)
[2019-11-30] MEDS ORDERED: Lactated Ringers 1,000 ML IV SCH (06:45)
[2019-11-30] MEDS ORDERED: Sodium Chloride 0.9% 10 ML Syringe FLUSH PRN (06:45)
[2019-11-30] MEDS ORDERED: acetaZOLAMIDE 500 MG Cap.ER PO ONE (08:15)
[2019-11-30 08:42] VITALS: BP 137/66; PULSE 56
--- NOTE | 2019-11-30 15:02 | OR ---
DATE OF OPERATION: 11/30/2019 SURGEON: Gabby Valdez MD PREOPERATIVE DIAGNOSIS: Visually significant cataract, left eye. POSTOPERATIVE DIAGNOSES: 1. Visually significant cataract, left eye. 2. Floppy iris syndrome, left eye. PROCEDURES PERFORMED: Phacoemulsification with intraocular lens placement, left eye. ASSISTANTS: None. ANESTHESIA: Local with sedation. COMPLICATIONS: None. BLOOD LOSS: None. IMPLANTS: Jignesh ACU0T0, 22.0 diopter lens implanted. CDE: 2.50. DESCRIPTION OF PROCEDURE: After risks and benefits were reviewed with the patient, consent was obtained in the preoperative area, and the operative eye was marked with a surgical pen. In the preoperative area, a pledget was used to dilate the pupil consisting of a mixture of phenylephrine 10%, cyclopentolate 2%, moxifloxacin 0.5%, and bupivacaine 0.75%. The patient was taken to the operating room, where a time-out was performed, and the patient was placed under monitored anesthesia care. Topical tetracaine was used for anesthesia. The operative eye was prepped and draped for ophthalmic surgery, and the microscope was brought into position and focused. A paracentesis incision was made, followed by injection of preservative-free 1% lidocaine into the anterior chamber, followed by injection of Viscoat into the anterior chamber. A microkeratome blade was used to make a corneal limbal incision temporally. A cystotome was used to make the beginning of the capsulorrhexis, which was carried around 360 degrees in a curvilinear fashion using Utrata forceps. A Miller cannula with BSS was used to hydrodissect and hydrodelineate the nucleus. The nucleus was removed in a divide and conquer manner using phacoemulsification. Irrigation and aspiration were used to remove the remaining cortical material. Provisc was used to inflate the capsular bag, and a pre-loaded Jignesh ACU0T0, 22.0 diopter lens, serial number [id number] was injected into the capsular bag. A Sinskey hook was used to position and center the lens. Next, irrigation and aspiration was used to remove any remaining viscoelastic and cortical material from the anterior chamber. BSS on a cannula was used to inflate the anterior chamber and hydrate the wound. The wound was checked and found to be watertight. 1 mg of Moxifloxacin was injected into the anterior chamber. Drapes were removed and the eye was cleaned. A drop of brimonidine 0.15% and a drop of TobraDex was placed. The eye was shielded, and the patient was taken to the recovery room in stable condition. CC: TAMANNA Felix CC: Radha Diaz OD CC: Gabby Valdez MD /[id number] BETH/AINSLEY
== END 2019-11-30 09:00 | disposition home or self-care (01) ==
LOC: FB.SDS 06:31
PROVIDERS: ATTEND Ophthalmology
DX: E11.36 Type 2 diabetes mellitus with diabetic cataract (principal); H25.812 Combined forms of age-related cataract, left eye; H02.886 Meibomian gland dysfunction of left eye, unspecified eyelid; H02.883 Meibomian gland dysfunction of right eye, unspecified eyelid; H21.81 Floppy iris syndrome; N40.0 Benign prostatic hyperplasia without lower urinary tract symptoms; I11.0 Hypertensive heart disease with heart failure; I50.32 Chronic diastolic (congestive) heart failure; J44.9 Chronic obstructive pulmonary disease, unspecified; I25.110 Atherosclerotic heart disease of native coronary artery with unstable angina pectoris; E78.5 Hyperlipidemia, unspecified; E02 Subclinical iodine-deficiency hypothyroidism; D64.9 Anemia, unspecified; Z79.899 Other long term (current) drug therapy; Z79.84 Long term (current) use of oral hypoglycemic drugs; Z87.891 Personal history of nicotine dependence; Z96.1 Presence of intraocular lens; Z98.41 Cataract extraction status, right eye
CPT/HCPCS: 00142-QZ; 82962; A9270-GY; J2250; J7120; V2632

== ENCOUNTER 2020-12-29 13:09 | Emergency (ER) | payer MEDICARE, BC ==
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
[2020-12-29] MEDS ORDERED: Sodium Chloride 0.9% 10 ML Syringe FLUSH PRN (13:59)
[2020-12-29] MEDS ORDERED: Acetaminophen 500 MG Tab PO ONE (14:33)
--- NOTE | 2020-12-29 14:59 | CR ---
INDICATION: Chest pain, dyspnea. CHEST ONE VIEW: AP upright portable view of the chest was obtained 12/29/20 and compared with 09/20/19 and 03/13/18. The heart is enlarged in appearance with post median sternotomy change. Overlying EKG leads are noted. Poor inspiration emphasized markings with an appearance compatible with pulmonary vascular congestion likely on the basis of CHF. The possibility of superimposed interstitial process other than pulmonary edema, such as pneumonia cannot be excluded. However, no gross consolidating pneumonia or large effusion was identified. IMPRESSION: Findings are compatible with CHF and interstitial lung edema although superimposed pneumonia cannot be excluded. MTDD
[2020-12-29 15:01] VITALS: BP 212/188; PULSE 75
[2020-12-29 15:05] LABS: BASE EXCESS VENOUS,POC 6 mmol/L (-2 - 3+); PCO2 VENOUS,POC 62 mmHg (41-51); PH VENOUS,POC 7.33 pH Units (7.32-7.43)
[2020-12-29] MEDS ORDERED: Magnesium Sulfate/Water 2 GM in Premix Bag 1 BAG IV ONE (15:15)
[2020-12-29] MEDS ORDERED: Furosemide 40 MG/4 ML VIAL IVPUSH ONE (15:20)
== END 2020-12-29 17:00 ==
LOC: FB.ED 13:09
DX: J96.01 Acute respiratory failure with hypoxia (principal); D64.9 Anemia, unspecified; I11.0 Hypertensive heart disease with heart failure; I50.32 Chronic diastolic (congestive) heart failure; I25.10 Atherosclerotic heart disease of native coronary artery without angina pectoris; E78.00 Pure hypercholesterolemia, unspecified; I25.2 Old myocardial infarction; J44.9 Chronic obstructive pulmonary disease, unspecified; K21.9 Gastro-esophageal reflux disease without esophagitis; M19.90 Unspecified osteoarthritis, unspecified site; E11.42 Type 2 diabetes mellitus with diabetic polyneuropathy; E03.9 Hypothyroidism, unspecified; E66.9 Obesity, unspecified; Z68.30 Body mass index [BMI] 30.0-30.9, adult; Z87.891 Personal history of nicotine dependence; Z79.82 Long term (current) use of aspirin; Z79.4 Long term (current) use of insulin; Z79.899 Other long term (current) drug therapy; Z20.822 Contact with and (suspected) exposure to COVID-19
CPT/HCPCS: 36415; 71045; 80053; 83735; 83880; 84484; 85025; 86140; 93005; 96365; 96375; 99285; A9270; J1940; J3475; U0002